=== PATIENT | female | born 1965 | race Two or more races ===

== ENCOUNTER 2023-01-08 23:36 | Inpatient (IN) | payer OTHER, MEDICAID ==
[~2023-01-08] VITALS: Ht 172.7 cm; Wt 81.7 kg
[2023-01-09 00:09] VITALS: PULSE 86; RESP 18; O2SAT 97
[2023-01-09 00:33] LABS: Basophils # (auto) 0 10 ^3/uL (0-0.2); Basophils % (auto) 0.6 % (0.0-2.0); Eosinophils # (auto) 0.2 10 ^3/uL (0-0.8); Lymphocytes # (auto) 0.6 10 ^3/uL (0.4-5.4); Mean Corpuscular Volume 82.9 fL (80.0-100.0)
[2023-01-09 00:35] LABS: Hematocrit 30.6 % (36.0-46.0); Lymphocytes % (auto) 11.6 % (10.0-50.0); Mean Corpuscular Hgb Conc. 32.5 g/dL (32.0-36.0); Monocytes # (auto) 0.4 10 ^3/uL (0-1.3); Monocytes % (auto) 7.2 % (0.0-12.0); Neutrophils # (auto) 3.8 10 ^3/uL (1.6-8.6); Neutrophils % (auto) 76.6 % (37.0-80.0); Red Blood Cells 3.69 10^6/uL (4.0-5.20); Red Cell Distribution Width 15.6 % (11.8-14.3)
[2023-01-09 00:50] LABS: Alanine Aminotransferase 33 U/L (7-40); Albumin 3.6 g/dL (3.2-4.8); Alkaline Phosphatase 118 U/L (46-116); Anion Gap 9 (5-15); Aspartate Aminotransferase 50 U/L (13-40); Bilirubin, Total 2.7 mg/dL (0.2-1.0); Blood Urea Nitrogen 15 mg/dL (9-23); Calcium 8.6 mg/dL (8.7-10.4); Carbon Dioxide 24 mmol/L (20-30); Chloride 107 mmol/L (98-107); Glucose 130 mg/dL (74-106); Magnesium 1.3 mg/dL (1.6-2.6); Potassium 3.7 mmol/L (3.5-5.1); Sodium 140 mmol/L (136-145); Total Protein 7.8 g/dL (5.7-8.2)
[2023-01-09 00:51] LABS: INR 1.24 (0.9-1.15); Partial Thromboplastin Time 30.8 SEC (24.5-34.5); Prothrombin Time 12.8 sec (9.3-11.8)
[2023-01-09 01:12] LABS: Platelet Estimate Decreased
[2023-01-09] MEDS ORDERED: SODIUM CHLORIDE 0.9% 1,000 ML IV ONE ×2 (03:30→06:45)
[2023-01-09] MEDS ORDERED: LACTULOSE 20Gm/30ML SOLN PO ONE (04:30)
[2023-01-09 05:59] LABS: Urine Bacteria FEW /hpf (None Seen); Urine Blood Negative /uL (Negative); Urine Clarity Clear (Clear); Urine Color Yellow (Yellow); Urine Protein, UAD Negative (Negative); Urine Specific Gravity 1.012 (1.001-1.035); Urine Urobilinogen Normal (Negative); Urine WBC 3 /hpf (0 - 5); Urine pH 7.5 (5.0-8.0)
[2023-01-09] MEDS ORDERED: HYDROcodone-ACET 5/325MG TAB PO ONE (06:00)
[2023-01-09] MEDS ORDERED: DEXTROSE (50%) 50ML SYRG IV PRN (06:00)
[2023-01-09] MEDS ORDERED: ONDANSETRON HCL 4 MG/2 ML VIAL IV PRN (06:00)
[2023-01-09] MEDS ORDERED: hydrALAZINE HCL 10 MG TAB PO PRN (06:00)
[2023-01-09 06:16] LABS: Amphetamine Screen, Urine Neg (NEGATIVE); Barbiturate Scree,Urine Neg (NEGATIVE); Benzodiazephine Screen, Urine Neg (NEGATIVE); Cannabinoid Screen, Urine Neg (NEGATIVE); Cocaine Screen, Urine Neg (NEGATIVE); Opiate Scree,Urine Pos (NEGATIVE); Phencyclidine Screen, Urine Neg (NEGATIVE)
[2023-01-09 08:00] VITALS: PULSE 96; RESP 24; O2SAT 99
[2023-01-09 08:26] LABS: Alanine Aminotransferase 32 U/L (7-40); Alkaline Phosphatase 97 U/L (46-116); Anion Gap 9 (5-15); Aspartate Aminotransferase 48 U/L (13-40); BUN/Creatinine Ratio 14.1 (10.0-20.0); Blood Urea Nitrogen 13 mg/dL (9-23); Calcium 8.2 mg/dL (8.5-10.1); Carbon Dioxide 23 mmol/L (20-30); Chloride 110 mmol/L (98-107); Glucose 142 mg/dL (74-106); Potassium 3.5 mmol/L (3.5-5.1); Sodium 142 mmol/L (136-145)
[2023-01-09 08:27] LABS: Bilirubin, Total 2.5 mg/dL (0.2-1.0); Total Protein 7.1 g/dL (5.7-8.2)
[2023-01-09 08:28] LABS: Albumin 3.3 g/dL (3.2-4.8)
[2023-01-09] MEDS: LACTULOSE 20Gm/30ML SOLN PO SCH ×4 (08:30→23:14)
[2023-01-09] MEDS: MAGNESIUM SULFATE 1GM/100ML 100 ML IV SCH ×2 (08:30→12:26)
[2023-01-09] MEDS: InsuLIN REG 1unit/0.01ml Soln (100units/ml) SC SCH ×4 (08:30→23:14)
[2023-01-09] MEDS: ACCU-CHEK COMFORT CURVE STRIP VI SCH ×4 (08:31→22:00)
[2023-01-09] MEDS ORDERED: MORPHINE SULFATE 4 MG/ML SYR/VIAL IV ONE (23:30)
[2023-01-09] MEDS ORDERED: ONDANSETRON HCL 4 MG/2 ML VIAL IV ONE (23:30)
[2023-01-10 02:06] VITALS: TEMP 98.2
[2023-01-10] MEDS: LACTULOSE 20Gm/30ML SOLN PO SCH ×2 (06:27→11:56)
[2023-01-10] MEDS: ACCU-CHEK COMFORT CURVE STRIP VI SCH ×3 (06:39→17:26)
[2023-01-10] MEDS: InsuLIN REG 1unit/0.01ml Soln (100units/ml) SC SCH ×3 (06:40→17:27)
[2023-01-10 09:12] LABS: Hepatitis B Surface Antigen Negative (Negative)
[2023-01-10 09:32] LABS: Hepatitis A Ab IgM Negative
[2023-01-10 09:33] LABS: Hepatitis B Core IgM Negative; Hepatitis C Antibody Negative (Negative)
[2023-01-10] MEDS ORDERED: MAGNESIUM OXIDE 400 MG TAB PO ONE (10:45)
[2023-01-10 11:55] LABS: Chloride 109 mmol/L (98-107); Potassium 3.1 mmol/L (3.5-5.1); Sodium 140 mmol/L (136-145)
[2023-01-10 11:56] LABS: Anion Gap 8 (5-15); Carbon Dioxide 23 mmol/L (20-30)
[2023-01-10 12:01] LABS: BUN/Creatinine Ratio 12.2 (10.0-20.0); Blood Urea Nitrogen 11 mg/dL (9-23); Glucose 204 mg/dL (74-106)
[2023-01-10 12:02] LABS: Magnesium 1.4 mg/dL (1.6-2.6)
[2023-01-10] MEDS ORDERED: POTASSIUM EFFERVESENT TAB 25 MEQ PO ONE (16:15)
[2023-01-10] MEDS ORDERED: MAGNESIUM SULFATE 1GM/100ML 100 ML IV SCH (17:00)
[2023-01-10] MEDS ORDERED: LACT10SO3 PO (17:01)
[2023-01-10 17:51] VITALS: BP 145/62; PULSE 87; RESP 16; O2SAT 97
== END 2023-01-10 17:46 | disposition home or self-care (01) | DRG 441 ==
LOC: ER 23:36 → EDBD 23:36 → TELE 01-09 06:20 → UNDODEPER 01-10 17:06
PROVIDERS: ADMIT Nurse Practitioner Family; ATTEND Nurse Practitioner Family
DX: K76.82 Hepatic encephalopathy (principal); G92.8 Other toxic encephalopathy; E11.9 Type 2 diabetes mellitus without complications; E83.42 Hypomagnesemia; G89.4 Chronic pain syndrome; I10 Essential (primary) hypertension; K74.60 Unspecified cirrhosis of liver; Z96.643 Presence of artificial hip joint, bilateral; E78.5 Hyperlipidemia, unspecified; M06.9 Rheumatoid arthritis, unspecified; Z79.84 Long term (current) use of oral hypoglycemic drugs; D69.6 Thrombocytopenia, unspecified
CPT/HCPCS: 36415; 70450; 71250; 74176; 76705; 80048; 80053; 80074; 80307; 81001; 82105; 82140; 82962; 83735; 83880; 84484; 85025; 85610; 85730; 93005; G0378; J1815; J2405

== ENCOUNTER 2024-06-04 18:28 | Inpatient (IN) | payer OTHER, MEDICARE ==
[~2024-06-04] VITALS: Ht 152.4 cm; Wt 96.5 kg
[~2024-06-04 18:28] MED LIST: LACT10SO3 PO
[2024-06-04 19:19] LABS: Eosinophils # (auto) 0.1 10 ^3/uL (0-0.8); Mean Corpuscular Hemoglobin 32.6 pg (28.0-32.0); Monocytes # (auto) 0.5 10 ^3/uL (0-1.3); Monocytes % (auto) 5.2 % (0.0-12.0); Platelet Count (auto) 58 10^3/uL (140-450); Red Blood Cells 3.68 10^6/uL (4.0-5.20)
[2024-06-04 19:20] LABS: Basophils # (auto) 0.1 10 ^3/uL (0-0.2); Basophils % (auto) 0.6 % (0.0-2.0); Eosinophils % (auto) 0.6 % (0.0-7.0); Hematocrit 34.9 % (36.0-46.0); Lymphocytes # (auto) 0.6 10 ^3/uL (0.4-5.4); Lymphocytes % (auto) 6.3 % (10.0-50.0); Mean Corpuscular Hgb Conc. 34.4 g/dL (32.0-36.0); Mean Corpuscular Volume 94.9 fL (80.0-100.0); Neutrophils # (auto) 8.6 10 ^3/uL (1.6-8.6); Neutrophils % (auto) 87.3 % (37.0-80.0); Nucleated Red Blood Cells % 0.1 %; Red Cell Distribution Width 14.4 % (11.8-14.3); White Blood Cell 9.9 10^3/uL (4.4-10.8)
--- NOTE | 2024-06-04 19:24 | ED.PDOC ---
History of Present Illness HPI Comments 59 y/o morbidly obese F, with a history of DM and HTN, presents with relative for c/o dizziness, lightheadedness,, headache, productive cough, nausea, vomiting, bilateral leg weakness, and unclear [id number], today. Patient endorses on onset of symptoms, last night. She comments concerns regarding her liver and suspecting her "liver enzymes" being "elevated," with endorsement of similar findings during previous PCP appointment, last week. Patient also reports on isolated episode of LUQ abdominal pain for 2x days that has since subsided on its own prior to ED visit. She denies having any hematemesis, diarrhea, constipation, urinary symptoms, fever, chills, or other associated sy mptoms at this time. Chief Complaint: General Weakness Time Seen by MD: 18:50 Primary Care Provider: BRENDA Robbins Notes: Nurses Notes, Medications, Allergies Allergies: Coded Allergies: NO KNOWN ALLERGIES (Unverified , 01/08/23) Home Meds Active Scripts Lactulose (Lactulose) 10 Gm/15 Ml [place], 30 ML PO Q6HR, #1200 ML Prov:ED ALBERTO MD 01/10/23 Information Source: Patient Mode of Arrival: Wheelchair Severity: Moderate Past Medical History PAST MEDICAL HISTORY: DM ([id number]), HTN Past Medical History (Other): previous history of chronic osteomyelitis of the left hip currently on [place], morbildy obese Surgical History (Other): bilateral hip surgery [employer] History: Pt Confused Family History Family History: Pt Confused Social History Smoker: Pt Confused Alcohol: Pt Confused Drugs: Pt Confused Lives In: Home All Other Systems: Reviewed and Negative (Comprehensive systems review obtained and negative except for what is stated in the HPI.) Physical Exam General Appearance: Mild Distress, Obese HEENT: Normal ENT Inspection, Pharynx Normal, TMs Normal Neck: Full Range of Motion, Non-Tender, Normal, Normal Inspection Respiratory: Chest Non-Tender, Lungs Clear, No Accessory Muscle Use, No Respiratory Distress, Normal Breath Sounds Cardiovascular: No Edema, No JVD, No Murmur, No Gallop, Normal Peripheral P ulses, Regular Rate/Rhythm Breast Exam: Deferred Gastrointestinal: No Organomegaly, Non Tender, No Pulsatile Mass, Normal Bowel Sounds, Soft, Other (obese abdomen ) Genitalia: Deferred Pelvic: Deferred Rectal: Deferred Extremities: No calf tenderness, Normal capillary refill, Normal inspection, Normal range of motion, Non-tender, No pedal edema Musculoskeletal : Apperance: Normal Neurologic: Alert, component prep operator II-XII nml as Tested, No Motor Deficits, Normal Affect, Normal Mood, No Sensory Deficits Cerebellar Function: Normal Reflexes: Normal Skin: Dry, Normal Color, Warm Lymphatic: No Adenopathy Was a procedure done? Was a procedure done?: No EKG EKG : Pulse Rate (adult): 104 [place]: Normal Cardiac Rhythm: ST Block: None Hypertrophy: None ST: Normal Differential Dx Considerations may include: viral syndrome, URI, PNA, sepsis, gastritis, gastroenteritis, UTI, among others X-Ray, Labs, Meds, VS Vital Signs Date Time Temp Pulse Resp B/P (MAP) Pulse Ox O2 Delivery O2 Flow Rate FiO2 06/04/24 19:23 104 06/04/24 19:01 104 06/04/24 18:46 98.9 113 20 123/65 (84) 98 98.9 Lab Test 06/04/24 20:00 06/04/24 19:07 06/04/24 18:57 06/04/24 18:56 Range/Units Lactic Acid Level 2.2 *H 0.4-2.0 mmol/L White Blood Count 9.9 4.4-10.8 10^3/uL Red Blood Count 3.68 L 4.0-5.20 10^6/uL Hemoglobin 12.0 L 12.2-16.2 g/dL Hematocrit 34.9 L 36.0-46.0 % Mean Corpuscular Volume 94.9 80.0-100.0 fL Mean Corpuscular Hemoglobin 32.6 H 28.0-32.0 pg Mean Corpuscular Hemoglobin Concent 34.4 32.0-36.0 g/dL Red Cell Distribution Width 14.4 H 11.8-14.3 % Platelet Count 58 L 140-450 10^3/uL Mean Platelet Volume 8.3 6.9-10.8 fL Neutrophils (%) (Auto) 87.3 H 37.0-80.0 % Lymphocytes (%) (Auto) 6.3 L 10.0-50.0 % Monocytes (%) (Auto) 5.2 0.0-12.0 % Eosinophils (%) (Auto) 0.6 0.0-7.0 % Basophils (%) (Auto) 0.6 0.0-2.0 % Neutrophils # (Auto) 8.6 1.6-8.6 10 ^3/uL Lymphocytes # (Auto) 0.6 0.4-5.4 10 ^3/uL Monocytes # (Auto) 0.5 0-1.3 10 ^3/uL Eosinophils # (Auto) 0.1 0-0.8 10 ^3/uL Basophils # (Auto) 0.1 0-0.2 10 ^3/uL Nucleated Red Blood Cells 0.1 % Platelet Estimate Pending Sodium Level 138 136-145 mmol/L Potassium Level 4.0 3.5-5.1 mmol/L Chloride Level 107 98-107 mmol/L Carbon Dioxide Level 24 20-31 mmol/L Anion Gap 7 5-15 Blood Urea Nitrogen 9 9-23 mg/dL Creatinine 0.74 0.550-1.02 mg/dL Glomerular Filtration Rate Calc 93 >90 mL/min BUN/Creatinine Ratio 12.2 10.0-20.0 Serum Glucose 135 H 74-106 mg/dL Calcium Level 8.5 L 8.7-10.4 mg/dL Magnesium Level 1.6 1.6-2.6 mg/dL Total Bilirubin 6.2 H 0.2-1.0 mg/dL Aspartate Amino Transferase (AST) 54 H 13-40 U/L Alanine Aminotransferase (ALT) 23 7-40 U/L Alkaline Phosphatase 142 H 46-116 U/L Ammonia 63 H 11-32 umol/L Troponin I High Sensitivity < 3 L </=34 ng/L Total Protein 7.6 5.7-8.2 g/dL Albumin 2.8 L 3.2-4.8 g/dL Urine Color Light-orange Yellow Urine Clarity Turbid H Clear Urine pH 7.5 5.0-9.0 Urine Specific [place] 1.021 1.001-1.035 Urine Protein Trace H Negative Urine Ketones Trace Negative Urine Blood Negative Negative /uL Urine Nitrite Negative Negative Urine Bilirubin Negative Negative Urine Urobilinogen 4 H Negative mg/dL Urine Leukocyte Esterase Negative Negative /uL Urine RBC 1 0 - 4 /hpf Urine Microscopic WBC 3 0-5 /HPF Urine Squamous Epithelial Cells Few <5 /hpf Urine Bacteria Few H None Seen /hpf Urine Mucus Few None Seen Urine Glucose Normal Normal mg/dL POC Glucose 126 H 70-106 mg/dl [facility] [address] [facility] [address] Ph: [phone] DIAGNOSTIC IMAGING Diagnostic Imaging Report : [id number] Signed PATIENT: GOLD MORRISON ACCT: [id number] UNIT: [id number] : 1965 LOC: ER ROOM / BED: / AGE / SEX: 59 / F ADM STATUS: REG ER SERVICE 35 ORDERING PHYSICIAN: ASIM DEL VALLE MD PROCEDURE(s): HWOCT - HEAD WITHOUT CONTRAST REASON: vertigo ORDER NUMBER(s): [id number], ACCESSION NUMBER(s): [id number] EXAM: CT HEAD WITHOUT CONTRAST INDICATION: vertigo TECHNIQUE: CT of the head without intravenous contrast. Radiation Dose Information: CT Dose: CTDI volume is 53.09 mGy. Dose-length product is 863.9 mGy*cm The dose indicators for CT are the volume Computed Tomography (CT) Dose Index (CTDIvol) and the Dose Length Product (DLP), and are measured in units of mGy and mGy-cm, respectively. These indicators are not patient dose, but values generated from the CT scanner acquisition factors. The report includes radiation exposure data for exposures received during this examination. COMPARISON: CT HEAD WITHOUT CONTRAST on DOS: 01/09/23 FINDINGS: There is no evidence of acute intracranial hemorrhage, extra-axial collection, mass effect, midline shift, herniation or hydrocephalus. The ventricles, sulci and cisterns are age appropriate. The strauss-white differentiation is intact. Patchy periventricular and subcortical white matter hypoattenuation is nonspecific but may be related to small vessel ischemic disease. The visualized paranasal sinuses and mastoid air cells are clear. The surrounding soft tissues and osseous structures are unremarkable. IMPRESSION: 1. No acute intracranial hemorrhage 2. No CT findings of territorial ischemia. 3. No paranasal sinus disease or mastoid disease. ATED BY: APOLONIA RODAS Jr., DO DICTATED DATE/TIME: 06/04/241951 SIGNED BY: APOLONIA RODAS Jr., SIGNED DATE/TIME: 06/04/241951 CC: Time of 1ST Reevaluation: 19:20 Reevaluation 1ST: Unchanged Time of 2ND Reevaluation: 20:16 Reevaluation 2ND: Unchanged Patient Education/Counseling: Diagnosis, Treatment Family Education/Counseling: Diagnosis, Treatment Additional Information Previous medical encounters reviewed: January 09, 2023 encounter for AMS The following tests were ordered, and results were reviewed by me: CT head w/o contrast, EKG, lactic acid w/reflex, ammonia, magnesium, CMP, CBC, troponin, blood culture Additional Information was gathered from interviewing the following independent historians: n/a I reviewed and agreed with the following test results read by other providers: CT head w/o contrast I discussed treatment and results with medical personnel and: Patient, relative Sepsis focused exam: focus exam completed (In the initial resuscitation at least 30 mL/kg of IV crystalloid fluid was NOT given within the first 3 hr due to concerns of fluid overload), time: (1999) Sepsis Sepsis Reasesment Focused Exam Sepsis focused exam: focus exam completed (In the initial resuscitation at least 30 mL/kg of IV crystalloid fluid was NOT given within the first 3 hr due to concerns of fluid overload), time: (1999) Departure 1 Departure Time of Disposition: 20:17 Impression: Primary Impression: Acute hepatic encephalopathy Disposition: ADMITTED INPATIENT Admit to: Med Surg Condition: Guarded Discharged With: Self, Relative Comments Altered Mental Status with Hepatic Encephalopathy Chief Complaint: Generalized weakness with confusion History of Present Illness: 59-year-old female with a history of liver cirrhosis presents with a 3-day history of generalized weakness, nausea, occasional vomiting, poor c oncentration, and intermittent confusion. These symptoms are concerning for hepatic encephalopathy in the context of her known liver disease. The patient's presentation suggests a possible precipitating factor leading to her current deterioration. Review of Systems: Constitutional: Generalized weakness Neurological: Poor concentration, confusion Gastrointestinal: Nausea, vomiting Medications: No current medications documented Allergies: No known allergies documented Past Medical History: Liver cirrhosis Diabetes mellitus Hypertension Fatty liver disease Morbid obesity Lab Results: CBC: - WBC: 10.0 - Hemoglobin: 12 - Hematocrit: 35 - Platelets: 58 Liver Function Tests: - Total Bilirubin: 6.2 - AST: 54 - Alkaline Phosphatase: 142 Other: - Ammonia: 63 (Elevated) - Lactic acid: 2.2 (Borderline elevated) Imaging and Other Relevant Results: No imaging studies documented Medical Decision Making: Summary Statement: 59-year-old female with known cirrhosis presenting with altered mental status and laboratory findings consistent with hepatic encephalopathy, complicated by dehydration. Problem List: 1. Hepatic encephalopathy 2. Dehydration 3. Elevated lactic acid 4. Thrombocytopenia 5. Liver cirrhosis Differential Diagnosis: 1. Hepatic encephalopathy 2. Metabolic encephalopathy 3. Sepsis 4. Drug-induced mental status changes 5. Intracranial process ED Course: Patient received IV fluid resuscitation and was started on IV Zosyn for elevated lactic acid. Lactulose ordered for elevated ammonia level. Decision made to admit patient for management of hepatic encephalopathy and dehydration. Assessment and Plan: 1. Hepatic Encephalopathy: - Elevated ammonia level of 63 - Started on lactulose - Will require inpatient management 2. Dehydration: - Receiving IV fluid resuscitation - Monitor fluid status and electrolytes 3. Elevated Lactic Acid: - Started on empiric IV Zosyn - Monitor response to treatment 4. Disposition: - Admit to medicine service - Continue current interventions - Close monitoring of mental status Billing Information: ICD-10: K72.90 - Hepatic failure, unspecified without coma ICD-10: E86.0 - Dehydration ICD-10: R41.0 - Disorientation, unspecified ICD-10: K74.60 - Unspecified cirrhosis of liver Critical Care Note Critical Care Time?: Yes (35 min-critical care time only) Critical care comment: Total critical care time: Approximately 36 minutes Due to a high probability of clinically significant, life threatening deterioration, the patient required my highest level of preparedness to intervene emergently and I personally spent this critical care time directly and personally managing the patient. This critical care time included obtaining a history; examining the patient; pulse oximetry; ordering and review of studies; arranging urgent treatment with development of a management plan; evaluation of patient's response to treatment; frequent reassessment; and, discussions with other providers. This critical care time was performed to assess and manage the high probability of imminent, life-threatening deterioration that could result in multi-organ failure. It was exclusive of separately billable procedures and treating other patients. Stability Stability form required: No Heart Score Heart Score: Heart Score Response (Comments) Value History N/A 0 EKG N/A 0 Age N/A 0 Risk Factors N/A 0 Troponin N/A 0 Total 0 I personally scribed for ASIM DEL VALLE MD ([email or web address]) on 06/04/24 at 19:23. Electronically submitted by Bj Quinn ([email or web address]). I personally scribed for ASIM DEL VALLE MD ([email or web address]) on 06/04/24 at 20:25. Electronically submitted by Bj Quinn [email or web address]). ASIM DEL VALLE MD Jun 04, 2024 19:23
[2024-06-04 19:33] LABS: Urine Bacteria FEW /hpf (None Seen); Urine Blood Negative /uL (Negative); Urine Clarity Turbid (Clear); Urine Color Light-Orange (Yellow); Urine Mucus FEW (None Seen); Urine Protein, UAD TRACE (Negative); Urine Specific Gravity 1.021 (1.001-1.035); Urine Squamous Epithelial Cell FEW /hpf (<5); Urine Urobilinogen 4 mg/dL (Negative); Urine WBC 3 /HPF (0-5); Urine pH 7.5 (5.0-9.0)
[2024-06-04 19:39] LABS: Alanine Aminotransferase 23 U/L (7-40); BUN/Creatinine Ratio 12.2 (10.0-20.0); Chloride 107 mmol/L (98-107); Magnesium 1.6 mg/dL (1.6-2.6); Sodium 138 mmol/L (136-145); Total Protein 7.6 g/dL (5.7-8.2)
[2024-06-04 19:42] LABS: Albumin 2.8 g/dL (3.2-4.8); Alkaline Phosphatase 142 U/L (46-116); Aspartate Aminotransferase 54 U/L (13-40); Bilirubin, Total 6.2 mg/dL (0.2-1.0); Blood Urea Nitrogen 9 mg/dL (9-23); Calcium 8.5 mg/dL (8.7-10.4); Glucose 135 mg/dL (74-106)
[2024-06-04 19:47] LABS: Anion Gap 7 (5-15); Carbon Dioxide 24 mmol/L (20-31)
--- NOTE | 2024-06-04 19:54 | DVH ---
EXAM: CT HEAD WITHOUT CONTRAST INDICATION: vertigo TECHNIQUE: CT of the head without intravenous contrast. Radiation Dose Information: CT Dose: CTDI volume is 53.09 mGy. Dose-length product is 863.9 mGy*cm The dose indicators for CT are the volume Computed Tomography (CT) Dose Index (CTDIvol) and the Dose Length Product (DLP), and are measured in units of mGy and mGy-cm, respectively. These indicators are not patient dose, but values generated from the CT scanner acquisition factors. The report includes radiation exposure data for exposures received during this examination. COMPARISON: CT HEAD WITHOUT CONTRAST on DOS: 01/09/23 FINDINGS: There is no evidence of acute intracranial hemorrhage, extra-axial collection, mass effect, midline s hift, herniation or hydrocephalus. The ventricles, sulci and cisterns are age appropriate. The strauss-white differentiation is intact. Patchy periventricular and subcortical white matter hypoattenuation is nonspecific but may be related to small vessel ischemic disease. The visualized paranasal sinuses and mastoid air cells are clear. The surrounding soft tissues and osseous structures are unremarkable. IMPRESSION: 1. No acute intracranial hemorrhage 2. No CT findings of territorial ischemia. 3. No paranasal sinus disease or mastoid disease.
[2024-06-04 20:43] LABS: Lactic Acid w/Reflex 2.2 mmol/L (0.4-2.0)
[2024-06-04 20:54] LABS: Platelet Estimate Decreased
[2024-06-04] MEDS: SODIUM CHLORIDE 0.9% 1,000 ML IV ONE (22:53)
[2024-06-04] MEDS: PIPERACILLIN-TAZOB 3.375GM 100 ML IV ONE (22:53)
[2024-06-04] MEDS: MECLIZINE HCL 25 MG TAB PO ONE (22:53)
[2024-06-04 23:01] VITALS: PULSE 110; RESP 18; O2SAT 98
[2024-06-05] VITALS (7 sets, daily range): BP systolic 127–137; BP diastolic 74–76; PULSE 86–105; RESP 18–20; TEMP 98; O2SAT 95–100
[2024-06-05] MEDS: IOHEXOL 300 MG/ML 100ML BOTTLE IJ ONE (00:55)
[2024-06-05] MEDS: ONDANSETRON HCL 4 MG/2 ML VIAL IV ONE (01:05)
[2024-06-05] MEDS: MORPHINE SULFATE 4 MG/ML SYR/VIAL IV ONE (01:06)
--- NOTE | 2024-06-05 01:18 | DVH ---
Exam: CT CT AB PELVIS W WO CON-IV ONLY History: abd pain, cirrhosis Comparison Study: None available at time of dictation. Technique: Multidetector spiral CT of the abdomen and pelvis was performed from lung bases to pubic s ymphysis. Initial imaging was done without IV contrast, followed by post contrast images of the abdom en and pelvis. Intravenous contrast was administered during this examination. portal venous/arterial/ multiphase imaging was obtained. Axial, coronal and sagittal multiplanar reformats were performed by the technologist on a separate workstation. Radiation Dose : CT Dose: CTDI volume is 47.44 mGy. Dose-length product is 2760.61 mGy*cm Findings: Lung Bases: Small right pleural effusion. Normal heart size. No pericardial effusion. Liver: The liver exhibits a diffusely cirrhotic morphology. No focal lesions. Otherwise, normal hepa tic vascular enhancement. Gallbladder and Biliary Tree: Unremarkable Spleen: Enlarged, measuring 17.0 cm in craniocaudal dimension. Pancreas: The pancreas is normal in appearance without focal lesions or abnormal enhancement. Adrenal Glands: Unremarkable Kidneys: Kidneys demonstrate normal symmetric enhancement without focal lesions, calculi or hydroneph rosis. Bladder: Unremarkable Bowel: The stomach is grossly normal in appearance. Colonic diverticular disease of the descending an d sigmoid colon without evidence of acute diverticulitis. Small bowel and colon are normal in caliber and distribution. The appendix is not visualized; however, no secondary findings of acute appendicit is identified. Ascites: Small volume abdominal and pelvic ascites. Lymphadenopathy: No mesenteric, retroperitoneal or periportal lymphadenopathy. Abdominal Wall and Mesentery: Unremarkable. Vasculature: The visualized abdominal aorta is normal in size and caliber. Atherosclerotic vascular c alcifications. Prominent portal venous and splenic collateral vessels consistent with cirrhosis and p ortal venous hypertension. Abdominal and pelvic vessels demonstrate normal enhancement. Pelvic Organs: Unremarkable Musculoskeletal: No aggressive focal bony lesions, acute fractures or dislocation. Hardware present s tatus post bilateral total hip arthroplasty. IMPRESSION: 1. Hepatic cirrhosis, splenomegaly and sequelae of portal venous hypertension. 2. Small volume abdominopelvic ascites. 3. Small pleural effusion. 4. Diverticulosis coli. Radiation optimization: All CT scans at this facility use at least one of these dose optimization joyce hniques: automated exposure control mA and/or kV adjustment per patient size (includes targeted exam s where dose is matched to clinical indication) or iterative reconstruction.
[2024-06-05] MEDS ORDERED: ACETAMINOPHEN 325 MG TAB PO PRN (07:15)
[2024-06-05] MEDS ORDERED: traMADol HCL 50 MG TAB PO PRN (07:15)
[2024-06-05] MEDS ORDERED: DOCUSATE SOD 100 MG CAP PO PRN (07:15)
[2024-06-05] MEDS ORDERED: NITROGLYCERIN 0.4 MG SL TAB SL PRN (07:15)
[2024-06-05] MEDS ORDERED: ONDANSETRON HCL 4 MG/2 ML VIAL IV PRN (07:15)
[2024-06-05] MEDS ORDERED: MORPHINE SULFATE INJ 2 MG/ml SYRG IV PRN (07:15)
[2024-06-05] MEDS ORDERED: DEXTROSE (50%) 50ML SYRG IV PRN (07:30)
[2024-06-05] MEDS: LACTULOSE 20Gm/30ML SOLN PO SCH ×2 (07:42→14:00)
--- NOTE | 2024-06-05 10:09 | ECG ---
[facility] Test Date: 2024-06-04 Test Time: 19:01:50 Pat Name: GOLD MORRISON Department: ER Room: [address] [place] [address] Gender: F Bundle Wrapper: SHERLEY : 1965 Requested By: ASIM DEL VALLE Order Number: [id number] Reading MD: Reginaldo Landis Measurements Intervals [place] Rate: 104 P: 35 IN: 150 QRS: 30 QRSD: 82 T: 21 QT: 352 QTc: 463 Interpretive Statements Fast sinus arrhythmia Low voltage, precordial leads Probable anteroseptal infarct, old Electronically Signed On 06-05-2024 18:50:20 PDT by Reginaldo Landis Please click the below link to view image of tracing.
[2024-06-05] MEDS: MORPHINE SULFATE INJ 2 MG/ml SYRG IV PRN (10:32)
[2024-06-05] MEDS: InsuLIN REG 1unit/0.01ml Soln (100units/ml) SC SCH (11:30)
[2024-06-05] MEDS: ACCU-CHEK COMFORT CURVE STRIP VI SCH (11:39)
--- NOTE | 2024-06-05 12:14 | DVHHP2 ---
History of Present Illness History of Present Illness 59 y/o morbidly obese F, with a history of DM and HTN, presents with relative for c/o dizziness, lightheadedness,, headache, productive cough, nausea, vomiting, bilateral leg weakness, and unclear [id number], today. Patient endorses on onset of symptoms, last night. She comments concerns regarding her liver and suspecting her "liver enzymes" being "elevated," with endorsement of similar findings during previous PCP appointment, last week. Patient also reports on isolated episode of LUQ abdominal pain for 2x days that has since subsided on its own prior to ED visit. She denies having any hematemesis, diarrhea, constipation, urinary symptoms, fever, chills, or other associated symptoms at this time. In the ER she was noted to have mildly elevated ammonia level around 63. Given her abdominal pain symptoms with a history of underlying liver cirrhosis and elevated ammonia levels she was being brought into the hospital for further evaluation and management. Past Medical History Morbid obesity, osteoarthritis of the hips, liver cirrhosis unclear etiology Past Surgical History Hip surgery Smoke: No ALCOHOL: rare Drugs: None Lives: with Family Review of Systems Review of Systems Denies any fevers. No headache dizziness or lightheadedness. No recent travel. Patient does have loose stools due to taking lactulose. No coughing up blood or bleeding per rectum. Other review of systems reviewed normal. Allergies: Coded Allergies: NO KNOWN ALLERGIES (Unverified , 01/08/23) Medications Current Medications Medications Dose Ordered Sig/Jeri Route Start Time Stop Time Status Last Admin Dose Admin Docusate Sodium 100 mg BIDPRN PRN PO 06/05/24 07:15 Acetaminophen 650 mg Q6HP PRN PO 06/05/24 07:15 Ondansetron HCl 4 mg Q4HP PRN IV 06/05/24 07:15 Morphine Sulfate 2 mg Q4HPRN PRN IV 06/05/24 07:15 06/05/24 10:32 2 MG Nitroglycerin 0.4 mg Q5MINP PRN SL 06/05/24 07:15 Morphine Sulfate 2 mg Q30M PRN IV 06/05/24 07:15 Lactulose 30 ml Q6HR PO 06/05/24 07:15 06/05/24 12:07 30 ML Tramadol HCl 50 mg Q6HPRN PRN PO 06/05/24 07:15 Diagnostic Test (Pha) 1 strip ACHS 06/05/24 11:30 06/05/24 11:39 1 STRIP Insulin Human Regular ACHS SC 06/05/24 11:30 Dextrose 50 ml UD PRN IV 06/05/24 07:30 Pantoprazole Sodium 40 mg BID@0600,1700 PO 06/05/24 17:00 Exam Vital Signs Vital Signs Date Time Temp Pulse Resp B/P (MAP) Pulse Ox O2 Delivery O2 Flow Rate FiO2 06/05/24 12:00 94 19 117/61 (79) 96 06/05/24 07:34 Nasal Cannula* 2 28 06/05/24 07:33 98.0 98.0 Exam Obese female comfortable lying in bed. Complains of mild epigastric discomfort. HEENT neck supple no JVD. Pupils equal round react to light. Oropharynx clear. Heart regular rate and rhythm. S1 plus S2 without any murmurs or gallops. Chest tube will expansion. Lungs fair air movement. No rales or wheezes. Abdomen is obese. Soft. Mild tenderness to deep palpation in the epigastric region. No rebound or guarding. Unable to palpate organomegaly. Extremities no edema. Positive distal pedal pulses. Nonpitting edema around the ankles. Labs/Xrays Labs Test 06/05/24 11:37 06/04/24 22:01 06/04/24 19:07 06/04/24 18:57 Range/Units POC Glucose 126 H 70-106 mg/dl Lactic Acid Level 2.0 0.4-2.0 mmol/L White Blood Count 9.9 4.4-10.8 10^3/uL Red Blood Count 3.68 L 4.0-5.20 10^6/uL Hemoglobin 12.0 L 12.2-16.2 g/dL Hematocrit 34.9 L 36.0-46.0 % Mean Corpuscular Volume 94.9 80.0-100.0 fL Mean Corpuscular Hemoglobin 32.6 H 28.0-32.0 pg Mean Corpuscular Hemoglobin Concent 34.4 32.0-36.0 g/dL Red Cell Distribution Width 14.4 H 11.8-14.3 % Platelet Count 58 L 140-450 10^3/uL Mean Platelet Volume 8.3 6.9-10.8 fL Neutrophils (%) (Auto) 87.3 H 37.0-80.0 % Lymphocytes (%) (Auto) 6.3 L 10.0-50.0 % Monocytes (%) (Auto) 5.2 0.0-12.0 % Eosinophils (%) (Auto) 0.6 0.0-7.0 % Basophils (%) (Auto) 0.6 0.0-2.0 % Neutrophils # (Auto) 8.6 1.6-8.6 10 ^3/uL Lymphocytes # (Auto) 0.6 0.4-5.4 10 ^3/uL Monocytes # (Auto) 0.5 0-1.3 10 ^3/uL Eosinophils # (Auto) 0.1 0-0.8 10 ^3/uL Basophils # (Auto) 0.1 0-0.2 10 ^3/uL Nucleated Red Blood Cells 0.1 % Platelet Estimate Decreased Sodium Level 138 136-145 mmol/L Potassium Level 4.0 3.5-5.1 mmol/L Chloride Level 107 98-107 mmol/L Carbon Dioxide Level 24 20-31 mmol/L Anion Gap 7 5-15 Blood Urea Nitrogen 9 9-23 mg/dL Creatinine 0.74 0.550-1.02 mg/dL Glomerular Filtration Rate Calc 93 >90 mL/min BUN/Creatinine Ratio 12.2 10.0-20.0 Serum Glucose 135 H 74-106 mg/dL Calcium Level 8.5 L 8.7-10.4 mg/dL Magnesium Level 1.6 1.6-2.6 mg/dL Total Bilirubin 6.2 H 0.2-1.0 mg/dL Aspartate Amino Transferase (AST) 54 H 13-40 U/L Alanine Aminotransferase (ALT) 23 7-40 U/L Alkaline Phosphatase 142 H 46-116 U/L Ammonia 63 H 11-32 umol/L Troponin I High Sensitivity < 3 L </=34 ng/L Total Protein 7.6 5.7-8.2 g/dL Albumin 2.8 L 3.2-4.8 g/dL Urine Color Light-orange Yellow Urine Clarity Turbid H Clear Urine pH 7.5 5.0-9.0 Urine Specific [place] 1.021 1.001-1.035 Urine Protein Trace H Negative Urine Ketones Trace Negative Urine Blood Negative Negative /uL Urine Nitrite Negative Negative Urine Bilirubin Negative Negative Urine Urobilinogen 4 H Negative mg/dL Urine Leukocyte Esterase Negative Negative /uL Urine RBC 1 0 - 4 /hpf Urine Microscopic WBC 3 0-5 /HPF Urine Squamous Epithelial Cells Few <5 /hpf Urine Bacteria Few H None Seen /hpf Urine Mucus Few None Seen Urine Glucose Normal Normal mg/dL Assessment/Plan Assessment/Plan We will admit to medical floor. We will check her LFTs and lipase and amylase ruled out any pancreatic problems. We will have a GI consultation. Given her history of liver cirrhosis with possible portal hypertension I will add a proton pump inhibitor. If her blood pressure tolerates consider adding low-dose propranolol. Patient counseled regarding diet exercise and weight loss. Physical therapy evaluation. Supportive care and treatment. Pain and nausea medications. Follow clinical management per clinical course and recommendations from the consultants. Discussed with the patient at bedside regarding care plan. Plan discussed with: Patient My Orders Orders - CHRISTOPHER WHALEN MD Procedure Category Date Status Time Pantoprazole Tablet PHA 06/05/24 In Process (Protonix Tablet) 17:00 Pt Request For Service PT 06/05/24 Logged 11:49 Lactulose Oral PHA 06/05/24 Verified 14:00 Morphine Extended PHA 06/05/24 Verified Release Tab (Oramorph 22:00 Comprehensive LAB 06/06/24 Verified Metabolic Panel 04:00 Lipase LAB 06/06/24 Verified 04:00 Lipase LAB 06/05/24 Verified 12:10 PTPTT LAB 06/05/24 Verified 12:10 Enoxaparin Sodium PHA 06/06/24 Verified (Lovenox) 10:00 Bilat Lower Dvt US 06/05/24 Verified 12:10 Echo 2d Mode Cardiac US 06/05/24 Verified DOP 12:10 Problem List: (1) Acute hepatic encephalopathy CHRISTOPHER WHALEN MD Jun 05, 2024 12:14
--- NOTE | 2024-06-05 13:11 | DVH ---
Procedure: US BiLat Lower DVT Study Date and Requested Time: 06/05/2024 12:45 PM History: leg swelling Comparison: None Technique: Multiple high resolution strauss-scale images with and without compression obtained of the bi lateral lower extremity veins, including the common femoral vein, deep femoral vein, proximal mid and distal superficial femoral vein, and popliteal vein. Additional limited images of the greater saphen ous vein also obtained. Augmentation performed as indicated. Color and spectral doppler flow images o btained as indicated. Findings: No visible intraluminal venous thrombus. No evidence of incompressibility or abnormal color or spectr al Doppler flow visualized in the bilateral lower extremity veins including, the common femoral vein, deep femoral vein, proximal mid and distal superficial femoral vein, and popliteal vein. Greater sap henous vein grossly unremarkable. Impression: No sonographic evidence of bilateral lower extremity deep venous thrombosis.
[2024-06-05 13:41] LABS: INR 1.6 (0.9-1.15); Partial Thromboplastin Time 37.9 SEC (24.5-34.5); Prothrombin Time 16.2 sec (9.3-11.8)
[2024-06-05] MEDS: PANTOPRAZOLE 40 MG TAB PO SCH (17:16)
[2024-06-05] MEDS: MORPHINE SULF 15mg ER tab PO SCH (21:45)
[2024-06-06] VITALS (7 sets, daily range): BP systolic 100–128; BP diastolic 46–81; PULSE 65–91; RESP 18–20; TEMP 97.3–98.9; O2SAT 94–98
[2024-06-06 06:14] LABS: Basophils # (auto) 0 10 ^3/uL (0-0.2); Eosinophils # (auto) 0.4 10 ^3/uL (0-0.8); Lymphocytes # (auto) 0.8 10 ^3/uL (0.4-5.4); Monocytes # (auto) 0.3 10 ^3/uL (0-1.3); White Blood Cell 4.5 10^3/uL (4.4-10.8)
[2024-06-06 06:22] LABS: Basophils % (auto) 0.8 % (0.0-2.0); Eosinophils % (auto) 8.2 % (0.0-7.0); Hematocrit 29.8 % (36.0-46.0); Lymphocytes % (auto) 17.3 % (10.0-50.0); Mean Corpuscular Hemoglobin 32.1 pg (28.0-32.0); Mean Corpuscular Hgb Conc. 33.7 g/dL (32.0-36.0); Mean Corpuscular Volume 95.4 fL (80.0-100.0); Neutrophils % (auto) 66.7 % (37.0-80.0); Nucleated Red Blood Cells % 0.1 %; Platelet Count (auto) 56 10^3/uL (140-450); Red Blood Cells 3.12 10^6/uL (4.0-5.20); Red Cell Distribution Width 14.8 % (11.8-14.3)
[2024-06-06 06:26] LABS: Alanine Aminotransferase 19 U/L (7-40); Albumin 2.4 g/dL (3.2-4.8); Alkaline Phosphatase 118 U/L (46-116); Anion Gap 8 (5-15); Aspartate Aminotransferase 39 U/L (13-40); BUN/Creatinine Ratio 14.5 (10.0-20.0); Bilirubin, Total 3.5 mg/dL (0.2-1.0); Blood Urea Nitrogen 11 mg/dL (9-23); Carbon Dioxide 25 mmol/L (20-31); Chloride 108 mmol/L (98-107); Glucose 119 mg/dL (74-106); Lipase 22 U/L (12-53); Potassium 3.7 mmol/L (3.5-5.1); Sodium 141 mmol/L (136-145); Total Protein 6.6 g/dL (5.7-8.2)
[2024-06-06] MEDS ORDERED: ENOXAPARIN SOD 40 MG/0.4 ML SYRINGE SC SCH (10:00)
[2024-06-06] MEDS ORDERED: PANT40T PO (15:30)
[2024-06-06] MEDS ORDERED: LACT10SO3 PO (15:30)
--- NOTE | 2024-06-06 15:32 | DVHDS2 ---
Discharge Summary Date of Admission Jun 05, 2024 at 07:15 Date of Discharge: Jun 06, 2024 Labs/Diagnostic Data: Laboratory Results Test 06/06/24 06:06 06/06/24 05:27 06/05/24 13:00 06/04/24 22:01 POC Glucose 97 mg/dl (70-106) White Blood Count 4.5 10^3/uL (4.4-10.8) Red Blood Count 3.12 10^6/uL (4.0-5.20) Hemoglobin 10.0 g/dL (12.2-16.2) Hematocrit 29.8 % (36.0-46.0) Mean Corpuscular Volume 95.4 fL (80.0-100.0) Mean Corpuscular Hemoglobin 32.1 pg (28.0-32.0) Mean Corpuscular Hemoglobin Concent 33.7 g/dL (32.0-36.0) Red Cell Distribution Width 14.8 % (11.8-14.3) Platelet Count 56 10^3/uL (140-450) Mean Platelet Volume 7.9 fL (6.9-10.8) Neutrophils (%) (Auto) 66.7 % (37.0-80.0) Lymphocytes (%) (Auto) 17.3 % (10.0-50.0) Monocytes (%) (Auto) 7.0 % (0.0-12.0) Eosinophils (%) (Auto) 8.2 % (0.0-7.0) Basophils (%) (Auto) 0.8 % (0.0-2.0) Neutrophils # (Auto) 3.0 10 ^3/uL (1.6-8.6) Lymphocytes # (Auto) 0.8 10 ^3/uL (0.4-5.4) Monocytes # (Auto) 0.3 10 ^3/uL (0-1.3) Eosinophils # (Auto) 0.4 10 ^3/uL (0-0.8) Basophils # (Auto) 0 10 ^3/uL (0-0.2) Nucleated Red Blood Cells 0.1 % Sodium Level 141 mmol/L (136-145) Potassium Level 3.7 mmol/L (3.5-5.1) Chloride Level 108 mmol/L (98-107) Carbon Dioxide Level 25 mmol/L (20-31) Anion Gap 8 (5-15) Blood Urea Nitrogen 11 mg/dL (9-23) Creatinine 0.76 mg/dL (0.550-1.02) Glomerular Filtration Rate Calc 90 mL/min (>90) BUN/Creatinine Ratio 14.5 (10.0-20.0) Serum Glucose 119 mg/dL (74-106) Calcium Level 8.0 mg/dL (8.7-10.4) Total Bilirubin 3.5 mg/dL (0.2-1.0) Aspartate Amino Transferase (AST) 39 U/L (13-40) Alanine Aminotransferase (ALT) 19 U/L (7-40) Alkaline Phosphatase 118 U/L (46-116) Ammonia 122 umol/L (11-32) Total Protein 6.6 g/dL (5.7-8.2) Albumin 2.4 g/dL (3.2-4.8) Lipase 22 U/L (12-53) Prothrombin Time 16.2 sec (9.3-11.8) Prothrombin Time INR 1.60 (0.9-1.15) Activated Partial Thromboplast Time 37.9 SEC (24.5-34.5) Lactic Acid Level 2.0 mmol/L (0.4-2.0) Test 06/04/24 19:07 06/04/24 18:57 Platelet Estimate Decreased Magnesium Level 1.6 mg/dL (1.6-2.6) Troponin I High Sensitivity < 3 ng/L (</=34) Urine Color Light-orange (Yellow) Urine Clarity Turbid (Clear) Urine pH 7.5 (5.0-9.0) Urine Specific [place] 1.021 (1.001-1.035) Urine Protein Trace (Negative) Urine Ketones Trace (Negative) Urine Blood Negative /uL (Negative) Urine Nitrite Negative (Negative) Urine Bilirubin Negative (Negative) Urine Urobilinogen 4 mg/dL (Negative) Urine Leukocyte Esterase Negative /uL (Negative) Urine RBC 1 /hpf (0 - 4) Urine Microscopic WBC 3 /HPF (0-5) Urine Squamous Epithelial Cells Few /hpf (<5) Urine Bacteria Few /hpf (None Seen) Urine Mucus Few (None Seen) Urine Glucose Normal mg/dL (Normal) Other Laboratory Tests 06/06/24 05:27 Brief Hx & Hospital Course: 59 y/o morbidly obese F, with a history of DM and HTN, presents with relative for c/o dizziness, lightheadedness,, headache, productive cough, nausea, vomiting, bilateral leg weakness, and unclear [id number], today. Patient endorses on onset of symptoms, last night. She comments concerns regarding her liver and suspecting her "liver enzymes" being "elevated," with endorsement of similar findings during previous PCP appointment, last week. Patient also reports on isolated episode of LUQ abdominal pain for 2x days that has since subsided on its own prior to ED visit. She denies having any hematemesis, diarrhea, constipation, urinary symptoms, fever, chills, or other associated symptoms at this time. In the ER she was noted to have mildly elevated ammonia level around 63. Given her abdominal pain symptoms with a history of underlying liver cirrhosis and elevated ammonia levels she was being brought into the hospital for further evaluation and management. She received lactulose and advised to continue rifaximin she takes at home for her encephalopathy with elevated ammonia level. While in the hospital her mental status is normal. Patient had good bowel movements. Patient treated supportively for possible gastritis felt secondary to NSAIDs related due to her chronic pain medications. Patient counseled regarding this. Patient is advised to continue proton pump inhibitor as she is prescribed. She is advised to follow up with the quality management coordinator for outpatient further evaluation including EGD as appropriate in 2-3 weeks. Otherwise while in the hospital patient's abdominal pain symptoms resolved. She was tolerating diet. No nausea vomiting. Mentation is normal. Therefore it is felt she could be safely discharged home. I have talked with the patient regarding her hospital diagnosis, treatment she received, discharge medications, discharge instructions and follow-up plan of care. She has verbalized understanding of these and agree with the care plan as outlined. Condition at Discharge: Stable Final Diagnosis/Problems List Hepatic encephalopathy, Gastritis, chronic pain syndrome Discharge Disposition: Home Discharge Instruct/Medications Diet: Consistent carbohydrate, Cardiac 2g Na,low cholest Activity: No Restrictions, As Tolerated Follow Up/Referral: Physicians Assistant Dr. Copeland after two weeks for the patient gastritis/reflux disease. Medications: To continue lactulose and other home medications as you were taking. Continue medication as prescribed New Medications: Pantoprazole Sodium Sesquihydr (Pantoprazole Sodium) 40 Mg Tab 40 MG PO BID, #60 TAB Continued Medications: Lactulose (Lactulose) 10 Gm/15 Ml [place] 30 ML PO Q6HR, #1200 ML (This prescription has been renewed) Discharge Statement: "Patient was advised to return to the ER or call 911 if any headaches, dizziness, shortness of breath, chest pain, abdominal pain, bleeding, fevers, or worsening of medical condition. Patient was counseled about treatment plan, medications, possible side effects, patientverbalized understanding. All questions were answered to the best of my ability. This discharge took greater then 30 minutes in planning, reviewing documentation, counseling the patient, and discussing with other team members." ASSESSMENT ASSESSMENT Assessment Hepatic encephalopathy, Gastritis, chronic pain syndrome CHRISTOPHER WHALEN MD Jun 06, 2024 15:32
--- NOTE | 2024-06-06 15:51 | DVHSR ---
APPROVED REPORT EXAM: Two-dimensional and M-mode echocardiogram with Doppler and color Doppler. Blood Pressure: 117/61 mmHg INDICATION liver cirrhosis, edema Surgery/Intervention Site: RISK FACTORS Obesity: Height: 5'3, Weight: 250 DIMENSIONS LVDd4.6 (3.8-5.7cm)LA (2D)3.8 (1.9-4.0cm)Aortic Root2.6 (2.0-3.7cm) LVDs2.9 (2.5-4.0cm)LA (MM) (1.9-4.0cm)Aortic Cusp Exc1.4 (1.5-2.0cm) EF (%) 60.0 (55-70%)Rt. Atrium3.9 (1.9-4.0cm)Asc. Aorta3.2 cm IVSd1.0 (0.7-1.1cm)RV (D) (1.8-2.4cm) PWd0.7 (0.7-1.1cm) Mitral Valve MitralMitral Stenosis E wave0.99m/sMV Mean GR.mmHg A wave1.23m/sMV Peak GR.mmHg E/A ratio0.82D MVAcm2 DECEL [id number] 1/2 [place] Aortic Valve Aortic ValveAortic Stenosis V11.22m/[place] Mean GR.10mmHg V22.06m/[place] Peak GR.17mmHg LVOT Diameter1.7 (1.8-2.4cm)Doppler AVA1.34cm2 Pulmonic Valve V21.46m/s Tricuspid Valve TR Velocity2.76m/s [id number] Conclusion Sinus rhythm. Normal chamber sizes. Valves are normal. Mild mitral annular calcification. There is calcification at the base of the pos terior mitral leaflet and mild aortic sclerosis Left ventricular systolic performance is preserved at 60% with normal RV function. Mild TR. No pericardial effusion masses or vegetations.
== END 2024-06-06 17:05 | disposition home or self-care (01) | DRG 442 ==
LOC: ER 18:28 → OVERFLOW 06-05 07:15 → TELE-EAST 06-05 20:50
PROVIDERS: ADMIT Internal Medicine; ATTEND Internal Medicine
DX: K76.82 Hepatic encephalopathy (principal); K76.6 Portal hypertension; M86.652 Other chronic osteomyelitis, left thigh; Z68.41 Body mass index [BMI] 40.0-44.9, adult; E86.0 Dehydration; E66.01 Morbid (severe) obesity due to excess calories; G89.4 Chronic pain syndrome; K74.60 Unspecified cirrhosis of liver; K29.70 Gastritis, unspecified, without bleeding; F17.200 Nicotine dependence, unspecified, uncomplicated; M16.0 Bilateral primary osteoarthritis of hip; I10 Essential (primary) hypertension; K76.0 Fatty (change of) liver, not elsewhere classified; E13.69 Other specified diabetes mellitus with other specified complication; Z79.899 Other long term (current) drug therapy
CPT/HCPCS: 36415; 70450; 74178; 80053; 81001; 82140; 82962; 83605; 83690; 83735; 84484; 85025; 85610; 85730; 87040; 93005; 93306; 93970; 96365; 97163; 99291; G0378; J1815; J2405; J2543

== ENCOUNTER 2024-07-11 18:55 | Inpatient (IN) | payer OTHER, MEDICAID ==
[~2024-07-11] VITALS: Ht 152.4 cm; Wt 108.0 kg
--- NOTE | 2024-07-11 19:08 | ECG ---
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
--- NOTE | 2024-07-11 19:32 | ED.PDOC ---
History of Present Illness HPI Comments 59-year-old female came to ER due to shortness of breath. Patient states she was discharged here 5 days ago due to her liver cirrhosis. States she has been short of breath since she was discharged, but progressively worsened in the past few days. Complaining also of abdominal distention, generalized weakness and easy fatigability, with worsening by pedal edema. For the past 2 days, patient also has been experiencing chest pains which persisted, prompting patient to come to the emergency room. Upon arrival blood pressure 94/46 mm Hg, saturating 98% on room air. Chief Complaint: Shortness of Breath Time Seen by MD: 19:31 Primary Care Provider: BRENDA Robbins Notes: Nurses Notes Allergies: Coded Allergies: NO KNOWN ALLERGIES (Unverified , 01/08/23) Information Source: Patient Mode of Arrival: Ambulatory Severity: Moderate Timing: Days Duration: Since onset Review of Systems REVIEW OF SYSTEMS: No fever, no chills, or fatigue HEENT: No sore throat, no earache, no congestion, no neck pain. Cardiac: (+) chest pain. No palpitations. Lungs: (+) shortness of breath, no cough. GI: No nausea, no vomiting, no diarrhea, no constipation, no abdominal pain : No dysuria, frequency, or urgency. No hematuria. Musculoskeletal: No joint pain , no joint swelling, no extremity edema. Skin: No rash, no itching. Neuro: No headache, no dizziness, (+) weakness Vital Signs Vital Signs Date Time Temp Pulse Resp B/P (MAP) Pulse Ox O2 Delivery O2 Flow Rate FiO2 07/11/24 22:26 98.6 100 22 110/89 (96) 96 98.6 07/11/24 19:46 Room Air* 0 21 Physical Exam General: Awake, alert and oriented. No acute distress. Skin: Skin in warm, dry and intact. Appropriate color for ethnicity. Nailbeds pink with no cyanosis. HEENT: The head is normocephalic and atraumatic. Conjunctivae are clear without exudates or hemorrhage. Sclera is non-icteric. EOM are intact. No signs of nys tagmus. Eyelids are normal in appearance without swelling or lesions. Oral mucosa is pink and moist Neck: The neck is supple with normal range of motion. No JVD. Cardiac: Heart rate and rhythm are normal. No murmurs, gallops, or rubs are auscultated. Respiratory: Patient appears winded, speaking in short sentences. Lung sounds are clear in all lobes bilaterally without rales, rhonchi, or wheezes. Abdominal: Abdomen is soft, non-tender without distention. Bowel sounds are present and normoactive in all four quadrants. Extremities: 2+ pitting bilateral lower extremity edema Neurological: The patient is awake, alert and oriented to person, place,. Speech is slow There is no facial asymmetry. 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 Was a procedure done?: No EKG EKG : Pulse Rate (adult): 98 Comments Sinus arrhythmia. No STEMI Differential Dx Considerations may include: Anemia, electrolyte imbalance, liver cirrhosis, hypotension, encephalopathy, pneumonia, CHF X-Ray, Labs, Meds, VS Vital Signs Date Time Temp Pulse Resp B/P (MAP) Pulse Ox O2 Delivery O2 Flow Rate FiO2 07/11/24 22:26 98.6 100 22 110/89 (96) 96 98.6 07/11/24 21:20 100 26 108/84 (92) 97 07/11/24 21:07 98.2 07/11/24 20:00 108 07/11/24 19:46 93 Room Air* 0 21 07/11/24 19:46 22 93 Room Air* 0 21 07/11/24 19:32 98 07/11/24 19:30 97.8 100 26 112/40 (64) 96 97.8 07/11/24 19:07 20 96 Room Air* 0 21 07/11/24 19:04 98 07/11/24 19:03 97.9 108 20 94/46 (62) 96 97.9 Lab Test 07/11/24 22:27 07/11/24 20:33 07/11/24 19:35 07/11/24 19:33 Range/Units Prothrombin Time 16.3 H 9.3-11.8 sec Prothrombin Time INR 1.61 H 0.9-1.15 Troponin I High Sensitivity 25 21 15 </=34 ng/L Triglycerides Level 74 < 150 mg/dL Cholesterol Level 79 < 200 mg/dL LDL Cholesterol 24 < 100 mg/dL HDL Cholesterol 28 L 40-59 mg/dL Total Bilirubin 4.7 H 0.2-1.0 mg/dL Direct Bilirubin 1.3 H <0.3 mg/dL Aspartate Amino Transferase (AST) 65 H 13-40 U/L Alanine Aminotransferase (ALT) 30 7-40 U/L Alkaline Phosphatase 145 H 46-116 U/L Total Protein 7.9 5.7-8.2 g/dL Albumin 2.9 L 3.2-4.8 g/dL Blood Gas Specimen Type Arterial Blood Gas Sample Site Left radial Blood Gas Patient Temperature 37.0 Arterial Blood Date Drawn [id number] Arterial Blood pH 7.344 L 7.350-7.450 Arterial Blood Partial Pressure CO2 41.9 32.0-45.0 mmHg Arterial Blood Partial Pressure O2 59.3 L 83.0-108.0 mmHg Arterial Blood HCO3 22.3 21.0-28.0 mmol/L Arterial Blood Oxygen Saturation 87.1 L 94.0-98.0 % Arterial Blood Base Excess -3.2 L -2.0-3.0 mmol/L Arterial Blood Oxyhemoglobin 85.7 L 94.0-98.0 % Arterial Blood Carboxyhemoglobin 1.1 0.5-1.5 % Arterial Blood Methemoglobin 0.5 0.0-1.5 % Martin Test Yes Blood Gas Total Hemoglobin 11.20 L 12.0-16.0 g/dL Blood Gas Modality Room air FiO2 % 21.0 White Blood Count 6.1 4.4-10.8 10^3/uL Red Blood Count 3.22 L 4.0-5.20 10^6/uL Hemoglobin 10.6 L 12.2-16.2 g/dL Hematocrit 31.2 L 36.0-46.0 % Mean Corpuscular Volume 97.0 80.0-100.0 fL Mean Corpuscular Hemoglobin 33.0 H 28.0-32.0 pg Mean Corpuscular Hemoglobin Concent 34.0 32.0-36.0 g/dL Red Cell Distribution Width 17.2 H 11.8-14.3 % Platelet Count 89 L 140-450 10^3/uL Mean Platelet Volume 7.8 6.9-10.8 fL Neutrophils (%) (Auto) 66.6 37.0-80.0 % Lymphocytes (%) (Auto) 15.8 10.0-50.0 % Monocytes (%) (Auto) 9.6 0.0-12.0 % Eosinophils (%) (Auto) 7.4 H 0.0-7.0 % Basophils (%) (Auto) 0.6 0.0-2.0 % Neutrophils # (Auto) 4.0 1.6-8.6 10 ^3/uL Lymphocytes # (Auto) 1.0 0.4-5.4 10 ^3/uL Monocytes # (Auto) 0.6 0-1.3 10 ^3/uL Eosinophils # (Auto) 0.5 0-0.8 10 ^3/uL Basophils # (Auto) 0 0-0.2 10 ^3/uL Nucleated Red Blood Cells 0.1 % Platelet Estimate Decreased Sodium Level 134 L 136-145 mmol/L Potassium Level 3.4 L 3.5-5.1 mmol/L Chloride Level 101 98-107 mmol/L Carbon Dioxide Level 23 20-31 mmol/L Anion Gap 10 5-15 Blood Urea Nitrogen 14 9-23 mg/dL Creatinine 1.68 H 0.550-1.02 mg/dL Glomerular Filtration Rate Calc 35 >90 mL/min BUN/Creatinine Ratio 8.3 L 10.0-20.0 Serum Glucose 154 H 74-106 mg/dL Calcium Level 8.7 8.7-10.4 mg/dL Ammonia 81 H 11-32 umol/L B-Type Natriuretic Peptide 71.31 0-100 pg/mL Plasma/Serum Blood Alcohol < 3.0 <10 mg/dL Current Medications Medications (Trade) Dose Ordered Sig/Jeri Route Start Time Stop Time Status Last Admin Albuterol (Ventolin Medneb) 2.5 mg ONCE ONCE NEB 07/11/24 19:15 07/11/24 19:16 DC 07/11/24 19:45 Acetaminophen (Tylenol Tablet) 650 mg ONCE ONCE PO 07/11/24 20:15 07/11/24 20:16 DC 07/11/24 21:07 Sodium Chloride 1,000 ml @ 130 mls/hr [id number] ONCE IV 07/11/24 22:00 07/12/24 05:41 07/11/24 23:28 Images Reviewed?: Images reviewed and evaluated by me (Independent interpretation of chest x-ray: No acute disease) Time of 1ST Reevaluation: 19:26 Reevaluation 1ST: Unchanged Patient Education/Counseling: Other (Need for admission) Family Education/Counseling: No Family Present Departure 1 Departure Time of Disposition: 21:50 Impression: Primary Impression: Shortness of breath Additional Impressions: RUBY (acute kidney injury) Hyperammonemia Chest pain Liver cirrhosis Disposition: ADMITTED INPATIENT Condition: Stable Comments Discussed with Arlin Montoya. Case Patient admitted to hospitalist service for further treatment, evaluation and monitoring. Extensive evaluation was performed in attempt to identify or rule out: (See differential diagnosis section) The following tests were ordered, and results were reviewed by me and discussed with patient: (See diagnostic results section) The following test were independently interpreted by me: EKG, chest x-ray I reviewed and agreed with the following test results read by other providers: Chest x-ray I reviewed the following notes from the pt's past medical encounters: N/A Additional information was gathered from interviewing the following independent historians: N/A Discussion of management or test interpretation with external physician/other qualified health child caregiver private home: Arlin Montoya MENTAL HYGIENE CONSULTANT Addressed an acute or chronic illness that poses a threat to life or bodily function: Hyperammonemia, dyspnea, RUBY, low blood pressures Decision regarding hospitalization or escalation of hospital level of care: Risk and benefits of admission for further treatment of patient's condition was considered. Due to patient's current clinical condition, high risk of decline and poor outcome if discharged and need for further inpatient management and monitoring, patient will be admitted to the hospital. Discussed with patient. Drug therapy requiring intensive monitoring for toxicity: N/A Parenteral controlled substances: N/A Decision regarding elective major surgery with identified patient or procedure risk factors: N/A Decision regarding emergency major surgery: N/A Decision not to resuscitate or to de-escalate care because of poor prognosis: N/A Diagnosis or treatment significantly limited by social determinants of health: N/A Critical Care Note Critical Care Time?: No Stability Stability form required: No Heart Score Heart Score: Heart Score Response (Comments) Value History Moderate Suspicious 1 EKG Repolarization Disturb 1 Age 45-64 1 Risk Factors >3 or Hx ASHD 2 Troponin Normal limit 0 Total 5 I personally scribed for JAM NUNEZ MD ([email or web address]) on 07/11/24 at 19:32. Electronically submitted by Efra Newton ([email or web address]). JAM NUNEZ MD July 11, 2024 19:32
[2024-07-11] MEDS: ALBUTEROL SULF 2.5 MG/0.5ML(0.5%) NEB SOLN NEB ONE (19:45)
[2024-07-11 19:51] LABS: Base Excess -3.2 mmol/L (-2.0-3.0)
[2024-07-11 19:51] LABS: Basophils # (auto) 0 10 ^3/uL (0-0.2); Basophils % (auto) 0.6 % (0.0-2.0); Eosinophils # (auto) 0.5 10 ^3/uL (0-0.8); Eosinophils % (auto) 7.4 % (0.0-7.0); Hematocrit 31.2 % (36.0-46.0); Hemoglobin 10.6 g/dL (12.2-16.2); Lymphocytes % (auto) 15.8 % (10.0-50.0); Monocytes # (auto) 0.6 10 ^3/uL (0-1.3); Monocytes % (auto) 9.6 % (0.0-12.0); Neutrophils % (auto) 66.6 % (37.0-80.0); Nucleated Red Blood Cells % 0.1 %; Red Blood Cells 3.22 10^6/uL (4.0-5.20); Red Cell Distribution Width 17.2 % (11.8-14.3); White Blood Cell 6.1 10^3/uL (4.4-10.8)
[2024-07-11 19:59] LABS: Chloride 101 mmol/L (98-107)
[2024-07-11 20:00] LABS: Anion Gap 10 (5-15); Calcium 8.7 mg/dL (8.7-10.4); Carbon Dioxide 23 mmol/L (20-31)
[2024-07-11 20:05] LABS: BUN/Creatinine Ratio 8.3 (10.0-20.0); Blood Urea Nitrogen 14 mg/dL (9-23)
[2024-07-11 20:10] LABS: Blood Alcohol < 3.0 mg/dL (<10); Glucose 154 mg/dL (74-106); Potassium 3.4 mmol/L (3.5-5.1); Sodium 134 mmol/L (136-145)
[2024-07-11 20:12] LABS: Platelet Count (auto) 89 10^3/uL (140-450); Platelet Estimate Decreased
--- NOTE | 2024-07-11 20:30 | DVH ---
CHEST RADIOGRAPH Indication: Shortness of breath Technique: Single frontal view of the chest was obtained COMPARISON: XY CHEST PORTABLE on DOS: 06/28/24, XY CHEST PORTABLE on DOS: 01/09/23 FINDINGS: Lines and Tubes: None Lungs: Clear Pleura: No effusion.No pneumothorax. Cardiomediastinal contours: Unremarkable IMPRESSION: No acute disease.
[2024-07-11] MEDS: ACETAMINOPHEN 325 MG TAB PO ONE (21:07)
[2024-07-11 22:16] LABS: Total Protein 7.9 g/dL (5.7-8.2)
[2024-07-11 22:19] LABS: Albumin 2.9 g/dL (3.2-4.8); Bilirubin, Direct 1.3 mg/dL (<0.3); Bilirubin, Total 4.7 mg/dL (0.2-1.0)
[2024-07-11] MEDS ORDERED: DEXTROSE (50%) 50ML SYRG IV PRN (22:45)
[2024-07-11] MEDS ORDERED: NITROGLYCERIN 0.4 MG SL TAB SL PRN (22:45)
[2024-07-11 23:12] LABS: INR 1.61 (0.9-1.15); Prothrombin Time 16.3 sec (9.3-11.8)
[2024-07-11 23:14] LABS: Triglycerides 74 mg/dL (< 150)
[2024-07-11 23:15] LABS: LDL Cholesterol 24 mg/dL (< 100)
[2024-07-11 23:16] LABS: Cholesterol 79 mg/dL (< 200)
[2024-07-11 23:28] LABS: HDL Cholesterol 28 mg/dL (40-59)
[2024-07-11] MEDS: SODIUM CHLORIDE 0.9% 1,000 ML IV ONE (23:28)
--- NOTE | 2024-07-11 23:29 | DVH ---
INDICATION: RUBY TECHNIQUE: Multiple real-time sonographic images of the kidneys and bladder were obtained. COMPARISON: None FINDINGS: Moderate bilateral renal atrophy. RIGHT kidney measures 9.1 cm in length. No hydronephrosis. LEFT kidney measures 8.8 cm in length. No hydronephrosis. Trace abdominal ascites. The urinary bladder is contracted. No large intraluminal masses are seen in the bladder. IMPRESSION: 1. Bilateral renal atrophy. 2. Trace abdominal ascites.
[2024-07-12] VITALS (27 sets, daily range): BP systolic 97–138; BP diastolic 43–70; PULSE 78–100; RESP 7–24; TEMP 97.8; O2SAT 92–100
[2024-07-12] MEDS: LACTULOSE 20Gm/30ML SOLN PO SCH (00:34)
[2024-07-12] MEDS: FUROSEMIDE 40 MG/4 ML VIAL IV ONE (02:20)
[2024-07-12] MEDS ORDERED: HYDR8TAB46 PO (02:41)
[2024-07-12] MEDS: ALBUMIN 25% 50 ML IV ONE (02:47)
--- NOTE | 2024-07-12 02:57 | DVHHP2 ---
Admitting Diagnosis: Hyperammonemia , RUBY, CP r/o ACS, liver cirrhosis History of Present Illness History Source: Patient Exam Limitations: No limitations HPI Mrs. Maya Ruff is a 59-year-old female with a history of liver cirrhosis, DM, hypertension, Seizures who presents with a chief complaint of shortness of breath. Patient states she was discharged here 5 days ago due to her liver cirrhosis. States she has been short of breath since she was discharged, but progressively worsened in the past few days. Complaining also of abdominal distention, generalized weakness and easy fatigability, with worsening by pedal edema. For the past 2 days, patient also has been experiencing chest pains which persisted, prompting patient to come to the emergency room. Patient repor ts non radiating left sided chest pain and left upper abdominal pain. Patient denies diarrhea, constipation, dysuria, hematuria. Patient admitted for further evaluation and treatment. Home Meds Reported Medications Hydromorphone Hcl (Dilaudid) 8 Mg Tab, 4 MG PO TID for rheumatoid arthritis, TAB 07/12/24 Past Medical History Cardiac: HTN Pulmonary: No pertinent Hx Central Nervous System: Seizure GI: No pertinent Hx Hemotology/Oncology: No pertinent Hx Hepatobiliary: Cirrhosis Psychiatric: No pertinent Hx Musculoskeletal: No pertinent Hx Rheumotologic: No pertinent Hx Infectious Disease: No peritnent Hx ENT: No pertinent Hx Renal/: No pertinent Hx Endocrine: NIDDM Dermatology: No pertinent Hx Patient Family History: Cancer of small intestine G8 MOTHER Diabetes mellitus G8 MOTHER FH: cirrhosis G8 FATHER Smoker: No Hx (Negative) Alocohol: None Drugs: None Lives with: With family Domestic Violence: Neg Review of Systems Constitutional: No symptom reported Ears, Nose, & Throat: No symptom reported Eyes: No symptom reported Pulmonary/Respiratory: Dyspnea Cardiovascular: Chest Pain Gastrointestinal: Abdominal Pain Genitourinary: No symptom reported Musculoskeletal: No symptom reported Skin: No symptom reported Psychiatric: No symptom reported Endocrine: No symptom reported Hemotologic/Lymphatic: No symptom reported H&P Exam Vital Signs Vital Signs Date Time Temp Pulse Resp B/P (MAP) Pulse Ox O2 Delivery O2 Flow Rate FiO2 07/12/24 02:20 91/65 07/12/24 00:56 100 24 93 Nasal Cannula* 4 36 07/11/24 22:26 98.6 98.6 General Appeara: Well developed, Well nourished Head Exam: Normal inspection Neck Exam: Normal inspection, Non-tender, Normal alignment Eye Exam: bilateral eye Normal inspection, bilateral eye PERRL, bilateral eye EOMI Ear Exam: bilateral ear Auricle normal Nasal Exam: Normal inspection Mouth: Normal Inspection Pulmonary/Respiratory: Normal inspection, Normal breath sounds, Chest non- tender, Lungs clear Cardiovascular/Chest: Normal inspection, Regular rate, Normal Rhythm Peripheral Pulses: 2+ dorsalis pedis (R), 2+ dorsalis pedis (L), 2+ Radial (R), 2+ Radial (L) Abdominal Exam: Normal bowel sounds, Soft, No tenderness Rectal Exam: Deferred Back Exam: Normal inspection Legs: bilateral leg swelling (+1 pitting edema) Neuro/Mental St: Alert, Oriented Appearance: Appropriate appearance, Appropriate insight Eye contact/ Speech: Cooperative, Good eye contact, Normal speech Thoughts/Psych: Normal thought pattern Skin Exam: Normal inspection, Normal color, Warm/dry Labs/Xrays Labs Test 07/11/24 22:27 07/11/24 20:33 07/11/24 19:35 07/11/24 19:33 Range/Units Prothrombin Time 16.3 H 9.3-11.8 sec Prothrombin Time INR 1.61 H 0.9-1.15 Troponin I High Sensitivity 25 </=34 ng/L Triglycerides Level 74 < 150 mg/dL Cholesterol Level 79 < 200 mg/dL LDL Cholesterol 24 < 100 mg/dL HDL Cholesterol 28 L 40-59 mg/dL Total Bilirubin 4.7 H 0.2-1.0 mg/dL Direct Bilirubin 1.3 H <0.3 mg/dL Aspartate Amino Transferase (AST) 65 H 13-40 U/L Alanine Aminotransferase (ALT) 30 7-40 U/L Alkaline Phosphatase 145 H 46-116 U/L Total Protein 7.9 5.7-8.2 g/dL Albumin 2.9 L 3.2-4.8 g/dL Blood Gas Specimen Type Arterial Blood Gas Sample Site Left radial Blood Gas Patient Temperature 37.0 Arterial Blood Date Drawn [id number] Arterial Blood pH 7.344 L 7.350-7.450 Arterial Blood Partial Pressure CO2 41.9 32.0-45.0 mmHg Arterial Blood Partial Pressure O2 59.3 L 83.0-108.0 mmHg Arterial Blood HCO3 22.3 21.0-28.0 mmol/L Arterial Blood Oxygen Saturation 87.1 L 94.0-98.0 % Arterial Blood Base Excess -3.2 L -2.0-3.0 mmol/L Arterial Blood Oxyhemoglobin 85.7 L 94.0-98.0 % Arterial Blood Carboxyhemoglobin 1.1 0.5-1.5 % Arterial Blood Methemoglobin 0.5 0.0-1.5 % Martin Test Yes Blood Gas Total Hemoglobin 11.20 L 12.0-16.0 g/dL Blood Gas Modality Room air FiO2 % 21.0 White Blood Count 6.1 4.4-10.8 10^3/uL Red Blood Count 3.22 L 4.0-5.20 10^6/uL Hemoglobin 10.6 L 12.2-16.2 g/dL Hematocrit 31.2 L 36.0-46.0 % Mean Corpuscular Volume 97.0 80.0-100.0 fL Mean Corpuscular Hemoglobin 33.0 H 28.0-32.0 pg Mean Corpuscular Hemoglobin Concent 34.0 32.0-36.0 g/dL Red Cell Distribution Width 17.2 H 11.8-14.3 % Platelet Count 89 L 140-450 10^3/uL Mean Platelet Volume 7.8 6.9-10.8 fL Neutrophils (%) (Auto) 66.6 37.0-80.0 % Lymphocytes (%) (Auto) 15.8 10.0-50.0 % Monocytes (%) (Auto) 9.6 0.0-12.0 % Eosinophils (%) (Auto) 7.4 H 0.0-7.0 % Basophils (%) (Auto) 0.6 0.0-2.0 % Neutrophils # (Auto) 4.0 1.6-8.6 10 ^3/uL Lymphocytes # (Auto) 1.0 0.4-5.4 10 ^3/uL Monocytes # (Auto) 0.6 0-1.3 10 ^3/uL Eosinophils # (Auto) 0.5 0-0.8 10 ^3/uL Basophils # (Auto) 0 0-0.2 10 ^3/uL Nucleated Red Blood Cells 0.1 % Platelet Estimate Decreased Sodium Level 134 L 136-145 mmol/L Potassium Level 3.4 L 3.5-5.1 mmol/L Chloride Level 101 98-107 mmol/L Carbon Dioxide Level 23 20-31 mmol/L Anion Gap 10 5-15 Blood Urea Nitrogen 14 9-23 mg/dL Creatinine 1.68 H 0.550-1.02 mg/dL Glomerular Filtration Rate Calc 35 >90 mL/min BUN/Creatinine Ratio 8.3 L 10.0-20.0 Serum Glucose 154 H 74-106 mg/dL Calcium Level 8.7 8.7-10.4 mg/dL Ammonia 81 H 11-32 umol/L B-Type Natriuretic Peptide 71.31 0-100 pg/mL Plasma/Serum Blood Alcohol < 3.0 <10 mg/dL Assessment/Plan Problem List: (1) Chest pain (2) Shortness of breath (3) RUBY (acute kidney injury) (4) Liver cirrhosis (5) Hyperammonemia (6) Elevated bilirubin Plan This is a 59 yo female with known history of liver cirrhosis, DM, hypertension, Seizures who presents with shortness of breath, chest pain, increased fatigue. Patient was found to have 1. Hyperammonemia 2. Acute Kidney Injury 3. CP r/o ACS 4. Abdominal distention 5. Elevated Bilirubin 6. Liver cirrhosis 7, DM with hyperglycemia 8, Hypotension Plan Admit Telemetry upgrade to ICU if vasopressors started as needed to keep MAP >65 Cardiology consultation, 2D echo , lipid panel Glucose monitoring ac & hs coverage with insulin ss CT abd/pelvis wo contrast Vasopressors ass needed Diuresis Lasix , Lactulose PO Discussed all above with patient who verbalized agreement and understanding of care plan. All questions were answered. Discussed care plan with patient nurse Chanel GANDHI. Discussed assessment and care plan with supervising MD. Plan discussed with: Patient, Other Code Visit Code Visit Total Time (mins): 45 Additional Comments Additional Comments Additional Comments 59 yo female with known history of liver cirrhosis, DM, hypertension, Seizures who presents with shortness of breath, chest pain, increased fatigue. Patient was found to have 1. Chest pain rule out NM 2. Advanced liver cirrhosis with ascites 3. Hyperammonemia 4. Acute kidney injury suspected secondary to vasomotor nephropathy 5. Diabetes mellitus type 2 6. Hypotension -titrate Levophed for systolic blood pressure more than 90, lactulose for 2-3 soft bowel movements -physical therapy evaluation and treatment BORIS FREDERICK BUTTON CLAMPER July 12, 2024 02:57 ED ALBERTO MD July 12, 2024 14:50
[2024-07-12 03:36] LABS: Urine Bacteria FEW /hpf (None Seen); Urine Blood TRACE /uL (Negative); Urine Budding Yeast OCCASIONAL /hpf (None Seen); Urine Clarity Ex.Turbid (Clear); Urine Color Dark-Yellow (Yellow); Urine Hyaline Cast MANY /lpf (0 - 2); Urine Mucus FEW (None Seen); Urine Protein, UAD 1+ (Negative); Urine Specific Gravity 1.022 (1.001-1.035); Urine Squamous Epithelial Cell MANY /hpf (<5); Urine Urobilinogen 2 mg/dL (Negative); Urine WBC 13 /HPF (0-5); Urine pH 5.5 (5.0-9.0)
--- NOTE | 2024-07-12 04:29 | DVH ---
Exam: CT CT AB PEL WO CON-NO ORAL OR IV History: abd distention Comparison Study: CT CT AB PEL WO CON-NO ORAL OR IV on DOS: 06/28/24, CT [facility] AB PEL WO CON-NO IV/ORAL on DOS: 01/09/23 Technique: Multidetector spiral CT of the abdomen was performed from lung bases to pubic symphysis. I maging was performed without IV contrast. Axial, coronal and sagittal multiplanar reformats were obta ined from the axial data set by the technologist. Radiation Dose : 1. Abdomen/Pelvis: CTDIvol 24.48 mGy, DLP 1473.47 cm mGy*cm. Findings: Evaluation of solid organs is limited due to lack of intravenous contrast use. Lung Bases: No acute or significant lung base finding. Normal heart size. No pleural or pericardial effusion. Interval resolution of pleural effusion. Liver: Diffusely cirrhotic hepatic morphology redemonstrated. No focal lesions. Gallbladder and Biliary Tree: Unremarkable Spleen: Stable enlargement, measuring 17.0 cm. Pancreas: The pancreas is grossly normal in appearance. Adrenal Glands: Unremarkable Kidneys: Kidneys are grossly normal without calculi or hydronephrosis. Bladder: Grossly unremarkable for degree of distention, containing a Vazquez catheter. Bowel: The stomach is grossly normal in appearance. Small bowel and colon are normal in caliber and d istribution. Diverticulosis coli. The appendix is not visualized; however, no secondary findings of a cute appendicitis identified. Ascites: Slight interval decrease in abdominopelvic ascites. Lymphadenopathy: No mesenteric, retroperitoneal or periportal lymphadenopathy. Abdominal Wall and Mesentery: Unremarkable. Vasculature: The visualized abdominal aorta is normal in size and caliber. Atherosclerotic vascular c alcifications. Prominent portal venous and splenic collateral vessels redemonstrated, consistent with cirrhosis and portal venous hypertension. Pelvic Organs: Unremarkable Musculoskeletal: No aggressive focal bony lesions, acute fractures or dislocation. Hardware within th e bilateral hip status post arthroplasty with associated beam hardening artifact partially obscuring the findings of the pelvis. IMPRESSION: 1. Interval resolution of small right pleural effusion. 2. Stable sequelae of hepatic cirrhosis, splenomegaly and portal venous hypertension. 3. Slight interval decrease in volume of abdominopelvic ascites. 4. Diverticulosis coli. Radiation optimization: All CT scans at this facility use at least one of these dose optimization joyce hniques: automated exposure control mA and/or kV adjustment per patient size (includes targeted exam s where dose is matched to clinical indication) or iterative reconstruction.
[2024-07-12] MEDS: KETOROLAC TROMETH 30 MG/ML 1ML VIAL IV ONE (05:57)
[2024-07-12 06:09] LABS: Basophils # (auto) 0 10 ^3/uL (0-0.2); Basophils % (auto) 0.8 % (0.0-2.0); Eosinophils # (auto) 0.3 10 ^3/uL (0-0.8); Eosinophils % (auto) 7.6 % (0.0-7.0); Hemoglobin 9.2 g/dL (12.2-16.2); Lymphocytes # (auto) 0.9 10 ^3/uL (0.4-5.4); Lymphocytes % (auto) 21.7 % (10.0-50.0); Mean Corpuscular Hemoglobin 34.2 pg (28.0-32.0); Mean Corpuscular Hgb Conc. 35.4 g/dL (32.0-36.0); Mean Corpuscular Volume 96.5 fL (80.0-100.0); Monocytes # (auto) 0.4 10 ^3/uL (0-1.3); Monocytes % (auto) 10.6 % (0.0-12.0); Neutrophils # (auto) 2.4 10 ^3/uL (1.6-8.6); Neutrophils % (auto) 59.3 % (37.0-80.0); Nucleated Red Blood Cells % 0.1 %; Platelet Count (auto) 51 10^3/uL (140-450); Red Blood Cells 2.69 10^6/uL (4.0-5.20); Red Cell Distribution Width 16.7 % (11.8-14.3)
[2024-07-12 06:24] LABS: Alanine Aminotransferase 24 U/L (7-40); Alkaline Phosphatase 109 U/L (46-116); Carbon Dioxide 25 mmol/L (20-31); Chloride 100 mmol/L (98-107)
[2024-07-12 06:25] LABS: Anion Gap 9 (5-15); BUN/Creatinine Ratio 8.7 (10.0-20.0); Blood Urea Nitrogen 15 mg/dL (9-23); Total Protein 6.7 g/dL (5.7-8.2)
[2024-07-12 06:32] LABS: Albumin 2.6 g/dL (3.2-4.8); Aspartate Aminotransferase 53 U/L (13-40); Calcium 8.1 mg/dL (8.7-10.4); Glucose 121 mg/dL (74-106); Potassium 3.1 mmol/L (3.5-5.1); Sodium 134 mmol/L (136-145)
[2024-07-12] MEDS: ACCU-CHEK COMFORT CURVE STRIP VI SCH (06:52)
[2024-07-12] MEDS: InsuLIN REG 1unit/0.01ml Soln (100units/ml) SC SCH (06:53)
[2024-07-12] MEDS: NOREPINEPHRINE 8 MG/250ML KIT 250 ML IV PRN (07:04)
--- NOTE | 2024-07-12 08:35 | DVHINCON2 ---
Date of service: July 12, 2024 Referring Physician Arlin Montoya, nurse practitioner Reason for Consultation Acute kidney injury History of Present Illness Patient is 59-year-old female with past medical history of liver cirrhosis, DM, hypertension, and Seizures is admitted for shortness of breath. On admission patient found to have elevated BUN creatinine nephrology is consulted Past Medical History liver cirrhosis, DM, hypertension, Seizures Allergies: Coded Allergies: NO KNOWN ALLERGIES (Unverified , 01/08/23) Home Meds Reported Medications Hydromorphone Hcl (Dilaudid) 8 Mg Tab, 4 MG PO TID for rheumatoid arthritis, TAB 07/12/24 Current Medications Current Medications Medications (Trade) Dose Ordered Sig/Jeri Route PRN Reason Start Time Stop Time Status Last Admin Nitroglycerin (Ntrostat Sublingual) 0.4 mg Q5MINP PRN SL FOR CHEST PAIN 07/11/24 22:45 Morphine Sulfate 2 mg Q30M PRN IV FOR CHEST PAIN 07/11/24 22:45 Lactulose 30 ml Q8HR PO 07/11/24 22:45 07/12/24 05:42 Ondansetron HCl (Zofran) 4 mg Q6HP PRN IV NAUSEA / VOMITING 07/11/24 22:45 Diagnostic Test (Pha) (Accu-Chek Comfort Curve T) 1 strip ACHS 07/12/24 07:00 07/12/24 06:52 Insulin Human Regular (InsuLIN R) ACHS SC 07/12/24 07:00 Dextrose 50 ml UD PRN IV Blood Sugar LESS THAN 60 07/11/24 22:45 Furosemide (Lasix Injection) 40 mg DAILY IV 07/12/24 10:00 Norepinephrine Bitartrate 250 ml @ 3.75 mls/hr Q24H PRN IV FOR MAP UNDER 65 07/12/24 02:15 07/12/24 07:04 Morphine Sulfate 2 mg Q6HPRN PRN IV MODERATE PAIN (4-6 PAIN SCALE) 07/12/24 05:30 Family History: Cancer of small intestine G8 MOTHER Diabetes mellitus G8 MOTHER FH: cirrhosis G8 FATHER Review of Systems All 12 item review of systems reviewed with the patient nonsignificant except what is mentioned in the history of present illness H&P Exam Vital Signs/I&O Vital Sign Date Time Temp Pulse Resp B/P (MAP) Pulse Ox O2 Delivery O2 Flow Rate FiO2 07/12/24 10:00 104/46 07/12/24 08:30 96 9 100 07/12/24 07:30 Nasal Cannula* 2 28 07/12/24 07:29 97.6 97.6 Intake and Output 07/11/24 07/12/24 19:00 07:00 Intake Total 440 ml Balance 440 ml Intake IV Total 440 ml Physical Exam Patient is awake non comfortably in bed Icteric sclera Lungs clear to auscultation bilaterally Cardiac exam regular rate and rhythm GI soft bowel sounds are present normal Extremities no clubbing cyanosis or edema Neuro nonfocal Labs/Diagnostic Data Labs/Diagnostic Data Laboratory Tests Test 07/12/24 06:51 07/12/24 06:00 07/12/24 03:19 07/11/24 22:27 Range/Units POC Glucose 117 H 70-106 mg/dl White Blood Count 4.0 #L 4.4-10.8 10^3/uL Red Blood Count 2.69 L 4.0-5.20 10^6/uL Hemoglobin 9.2 L 12.2-16.2 g/dL Hematocrit 26.0 #L 36.0-46.0 % Mean Corpuscular Volume 96.5 80.0-100.0 fL Mean Corpuscular Hemoglobin 34.2 H 28.0-32.0 pg Mean Corpuscular Hemoglobin Concent 35.4 32.0-36.0 g/dL Red Cell Distribution Width 16.7 H 11.8-14.3 % Platelet Count 51 L 140-450 10^3/uL Mean Platelet Volume 7.8 6.9-10.8 fL Neutrophils (%) (Auto) 59.3 37.0-80.0 % Lymphocytes (%) (Auto) 21.7 10.0-50.0 % Monocytes (%) (Auto) 10.6 0.0-12.0 % Eosinophils (%) (Auto) 7.6 H 0.0-7.0 % Basophils (%) (Auto) 0.8 0.0-2.0 % Neutrophils # (Auto) 2.4 1.6-8.6 10 ^3/uL Lymphocytes # (Auto) 0.9 0.4-5.4 10 ^3/uL Monocytes # (Auto) 0.4 0-1.3 10 ^3/uL Eosinophils # (Auto) 0.3 0-0.8 10 ^3/uL Basophils # (Auto) 0 0-0.2 10 ^3/uL Nucleated Red Blood Cells 0.1 % Sodium Level 134 L 136-145 mmol/L Potassium Level 3.1 L 3.5-5.1 mmol/L Chloride Level 100 98-107 mmol/L Carbon Dioxide Level 25 20-31 mmol/L Anion Gap 9 5-15 Blood Urea Nitrogen 15 9-23 mg/dL Creatinine 1.72 H 0.550-1.02 mg/dL Glomerular Filtration Rate Calc 34 >90 mL/min BUN/Creatinine Ratio 8.7 L 10.0-20.0 Serum Glucose 121 H 74-106 mg/dL Calcium Level 8.1 L 8.7-10.4 mg/dL Total Bilirubin 4.0 H 0.2-1.0 mg/dL Aspartate Amino Transferase (AST) 53 H 13-40 U/L Alanine Aminotransferase (ALT) 24 7-40 U/L Alkaline Phosphatase 109 46-116 U/L Ammonia 59 H 11-32 umol/L Troponin I High Sensitivity 12 25 </=34 ng/L Total Protein 6.7 5.7-8.2 g/dL Albumin 2.6 L 3.2-4.8 g/dL Urine Color Dark-yellow Yellow Urine Clarity Ex.turbid Clear Urine pH 5.5 5.0-9.0 Urine Specific [place] 1.022 1.001-1.035 Urine Protein 1+ H Negative Urine Ketones Trace Negative Urine Blood Trace H Negative /uL Urine Nitrite Negative Negative Urine Bilirubin 1+ H Negative Urine Urobilinogen 2 H Negative mg/dL Urine Leukocyte Esterase 2+ Negative /uL Urine RBC 3 0 - 4 /hpf Urine Microscopic WBC 13 H 0-5 /HPF Urine Squamous Epithelial Cells Many <5 /hpf Urine Bacteria Few H None Seen /hpf Urine Hyaline Casts Many 0 - 2 /lpf Urine Granular Casts Many 0 /lpf Urine Mucus Few None Seen Urine Yeast (Budding) Occasional None Seen /hpf Urine Glucose Normal Normal mg/dL Prothrombin Time 16.3 H 9.3-11.8 sec Prothrombin Time INR 1.61 H 0.9-1.15 Triglycerides Level 74 < 150 mg/dL Cholesterol Level 79 < 200 mg/dL LDL Cholesterol 24 < 100 mg/dL HDL Cholesterol 28 L 40-59 mg/dL Test 07/11/24 20:33 07/11/24 19:35 07/11/24 19:33 Range/Units Total Bilirubin 4.7 H 0.2-1.0 mg/dL Direct Bilirubin 1.3 H <0.3 mg/dL Aspartate Amino Transferase (AST) 65 H 13-40 U/L Alanine Aminotransferase (ALT) 30 7-40 U/L Alkaline Phosphatase 145 H 46-116 U/L Troponin I High Sensitivity 21 15 </=34 ng/L Total Protein 7.9 5.7-8.2 g/dL Albumin 2.9 L 3.2-4.8 g/dL Blood Gas Specimen Type Arterial Blood Gas Sample Site Left radial Blood Gas Patient Temperature 37.0 Arterial Blood Date Drawn [id number] Arterial Blood pH 7.344 L 7.350-7.450 Arterial Blood Partial Pressure CO2 41.9 32.0-45.0 mmHg Arterial Blood Partial Pressure O2 59.3 L 83.0-108.0 mmHg Arterial Blood HCO3 22.3 21.0-28.0 mmol/L Arterial Blood Oxygen Saturation 87.1 L 94.0-98.0 % Arterial Blood Base Excess -3.2 L -2.0-3.0 mmol/L Arterial Blood Oxyhemoglobin 85.7 L 94.0-98.0 % Arterial Blood Carboxyhemoglobin 1.1 0.5-1.5 % Arterial Blood Methemoglobin 0.5 0.0-1.5 % Martin Test Yes Blood Gas Total Hemoglobin 11.20 L 12.0-16.0 g/dL Blood Gas Modality Room air FiO2 % 21.0 White Blood Count 6.1 4.4-10.8 10^3/uL Red Blood Count 3.22 L 4.0-5.20 10^6/uL Hemoglobin 10.6 L 12.2-16.2 g/dL Hematocrit 31.2 L 36.0-46.0 % Mean Corpuscular Volume 97.0 80.0-100.0 fL Mean Corpuscular Hemoglobin 33.0 H 28.0-32.0 pg Mean Corpuscular Hemoglobin Concent 34.0 32.0-36.0 g/dL Red Cell Distribution Width 17.2 H 11.8-14.3 % Platelet Count 89 L 140-450 10^3/uL Mean Platelet Volume 7.8 6.9-10.8 fL Neutrophils (%) (Auto) 66.6 37.0-80.0 % Lymphocytes (%) (Auto) 15.8 10.0-50.0 % Monocytes (%) (Auto) 9.6 0.0-12.0 % Eosinophils (%) (Auto) 7.4 H 0.0-7.0 % Basophils (%) (Auto) 0.6 0.0-2.0 % Neutrophils # (Auto) 4.0 1.6-8.6 10 ^3/uL Lymphocytes # (Auto) 1.0 0.4-5.4 10 ^3/uL Monocytes # (Auto) 0.6 0-1.3 10 ^3/uL Eosinophils # (Auto) 0.5 0-0.8 10 ^3/uL Basophils # (Auto) 0 0-0.2 10 ^3/uL Nucleated Red Blood Cells 0.1 % Platelet Estimate Decreased Sodium Level 134 L 136-145 mmol/L Potassium Level 3.4 L 3.5-5.1 mmol/L Chloride Level 101 98-107 mmol/L Carbon Dioxide Level 23 20-31 mmol/L Anion Gap 10 5-15 Blood Urea Nitrogen 14 9-23 mg/dL Creatinine 1.68 H 0.550-1.02 mg/dL Glomerular Filtration Rate Calc 35 >90 mL/min BUN/Creatinine Ratio 8.3 L 10.0-20.0 Serum Glucose 154 H 74-106 mg/dL Calcium Level 8.7 8.7-10.4 mg/dL Ammonia 81 H 11-32 umol/L B-Type Natriuretic Peptide 71.31 0-100 pg/mL Plasma/Serum Blood Alcohol < 3.0 <10 mg/dL Assessment Acute kidney injury superimposed Chronic Kidney Disease secondary hemodynamic mediated Diabetes mellitus type 2 Liver cirrhosis Jaundice Hypokalemia Hypoalbuminemia Anemia of chronic kidney disease Recommendations Closely monitor fluid and electrolytes Avoid nephrotoxic medications Strict I&Os Check urine electrolytes and urine protein excretion Kidney ultrasound reported bilateral atrophic kidney no obstruction KCL replacement Midodrine Albumin 25% IV piggyback Insulin sliding scale We will continue to follow Patient seen and examined by myself in the ER. I discussed my plan of care with the patient and primary nurse at the bedside I would like to thank Arlin for the consult, will follow up Plan discussed with: Patient HORACE TREJO MD July 12, 2024 08:35
[2024-07-12] MEDS: FUROSEMIDE 40 MG/4 ML VIAL IV SCH (10:00)
--- NOTE | 2024-07-12 15:07 | DVHSR ---
APPROVED REPORT EXAM: LIMITED Two-dimensional and M-mode echocardiogram with Doppler and color Doppler. Blood Pressure: 108/53 mmHg INDICATION SOB Leg edema r/o CHF RISK FACTORS Obesity: Height: 5', Weight: 210 DIMENSIONS LVDd4.8 (3.8-5.7cm)LA (2D)3.8 (1.9-4.0cm)Aortic Root2.5 (2.0-3.7cm) LVDs3.5 (2.5-4.0cm)LA (MM) (1.9-4.0cm)Aortic Cusp Exc1.4 (1.5-2.0cm) EF (%) 55.0 (55-70%)Rt. Atrium3.5 (1.9-4.0cm)Asc. Aorta cm IVSd0.8 (0.7-1.1cm)RV (D) (1.8-2.4cm) PWd0.9 (0.7-1.1cm) Mitral Valve MitralMitral Stenosis E wave1.20m/sMV Mean GR.3mmHg A wave1.10m/sMV Peak GR.28mmHg E/A ratio1.12D MVAcm2 DECEL [id number] 1/2 Unin54im IVRTmsDop MVA2.42cm2 Aortic Valve Aortic ValveAortic Stenosis V11.10m/[place] Mean GR.9mmHg V22.00m/[place] Peak GR.16mmHg LVOT Diameter2.0 (1.8-2.4cm)Doppler AVA1.73cm2 Pulmonic Valve V20.90m/s Tricuspid Valve TR Velocity2.70m/s [id number] Other Information Quality : Technically LimitedRhythm : Technically limited study due to body habitus. Conclusion MILD LVH AND MILD LV DIASTOLIC DYSFUNCTION LV EF IS 65% AND IS NORMAL CALCIFIED AORTIC VALVE AORTIC SCLEROSIS BUT NO STENOSIS SLIGHTLY DILATED LA SLIGHTLY DILATED RV RVSP IS 40 MM OF HG AND IS ELEVATED MILD PULMONARY HYPERTENSION NO EFFUSION NORMAL MV,TV AND PV
[2024-07-12] MEDS: POTASSIUM CHL 20 Meq TABLET PO ONE (20:28)
[2024-07-12] MEDS: MORPHINE SULFATE INJ 2 MG/ml SYRG IV PRN (21:52)
[2024-07-12 23:54] LABS: Potassium 3.2 mmol/L (3.5-5.1)
[2024-07-12 23:59] LABS: Magnesium 1.6 mg/dL (1.6-2.6)
[2024-07-13] VITALS (80 sets, daily range): BP systolic 91–141; BP diastolic 32–68; PULSE 79–103; RESP 11–37; TEMP 98.1–98.9; O2SAT 92–100
[2024-07-13] MEDS: POTASSIUM CHL 20 Meq TABLET PO ONE (00:33)
[2024-07-13] MEDS: MAGNESIUM SULFATE 1GM/100ML 100 ML IV ONE (00:37)
[2024-07-13 03:23] LABS: Basophils # (auto) 0 10 ^3/uL (0-0.2); Lymphocytes # (auto) 0.5 10 ^3/uL (0.4-5.4); Lymphocytes % (auto) 14.5 % (10.0-50.0); Monocytes # (auto) 0.3 10 ^3/uL (0-1.3); Neutrophils # (auto) 2.3 10 ^3/uL (1.6-8.6); Nucleated Red Blood Cells % 0.1 %
[2024-07-13 03:25] LABS: Eosinophils # (auto) 0.3 10 ^3/uL (0-0.8); Eosinophils % (auto) 8.1 % (0.0-7.0); Hematocrit 26.9 % (36.0-46.0); Hemoglobin 9.3 g/dL (12.2-16.2); Mean Corpuscular Hgb Conc. 34.6 g/dL (32.0-36.0); Mean Corpuscular Volume 95.2 fL (80.0-100.0); Monocytes % (auto) 7.9 % (0.0-12.0); Neutrophils % (auto) 68.5 % (37.0-80.0); Platelet Count (auto) 50 10^3/uL (140-450); Red Blood Cells 2.82 10^6/uL (4.0-5.20); Red Cell Distribution Width 16.6 % (11.8-14.3); White Blood Cell 3.4 10^3/uL (4.4-10.8)
[2024-07-13 03:48] LABS: Alkaline Phosphatase 115 U/L (46-116)
[2024-07-13 03:49] LABS: Alanine Aminotransferase 25 U/L (7-40); Anion Gap 6 (5-15); Blood Urea Nitrogen 14 mg/dL (9-23); Carbon Dioxide 28 mmol/L (20-31); Chloride 103 mmol/L (98-107); Glucose 101 mg/dL (74-106); Potassium 3.5 mmol/L (3.5-5.1); Sodium 137 mmol/L (136-145); Total Protein 6.5 g/dL (5.7-8.2)
[2024-07-13 03:50] LABS: Albumin 2.5 g/dL (3.2-4.8); Aspartate Aminotransferase 57 U/L (13-40); Bilirubin, Total 3.1 mg/dL (0.2-1.0); Calcium 7.8 mg/dL (8.7-10.4)
[2024-07-13] MEDS: MORPHINE SULFATE INJ 2 MG/ml SYRG IV PRN (06:26)
[2024-07-13 12:23] LABS: Creatinine, Urine 37.73 mg/dL (30.0-125.0); Urine Protein/Creatinine Ratio 0.16
[2024-07-13 12:25] LABS: Protein, Urine < 6.0 mg/dL (1-14)
--- NOTE | 2024-07-13 13:34 | DVHPN2 ---
Progress Note Date Seen: July 13, 2024 Resident Creating Document: TWAN COYNE RESIDENT Has the PT tested + for MRSA If YES, has PT been informed?: No Medical Necessity Reason Pt with a Central, PICC or Fol: No Subjective Review of Systems Patient seen and examined at bedside. Patient is alert and oriented in person, place and time. Currently on room air saturating above 96%. The patient was on Levophed at 2 micrograms/minute. We will start the patient on midodrine 10 mg t.i.d. and we will titrate off Levophed as tolerated. We will also give albumin three doses IV. Patient had a good total urine output of 3.3 L in the last 24 hours. Upon my examination reveals decreased breath sounds new right lung reddy but left lung reddy is grossly clear. There are also bilateral lower extremity pedal edema 2+ that is worse on the right lower extremity compared to the left one. Today, creatinine improved from 1.72 all doing down to 1.08. We will sign off the case at this time. Patient may be downgraded to WANDA/TELE per hospitalist recommendations. ROS Constitutional: Denies weight loss, fever and chills. HEENT: Denies changes in vision and hearing. Respiratory: Denies shortness of breath and cough Cardiovascular: Denies chest discomfort or palpitations GI: Reports mild abdominal distention. Denies abdominal pain, nausea, vomiting and diarrhea. : Denies dysuria and urinary frequency. Musculoskeletal: Reports mild lower extremity swelling. Denies myalgias and joint pain Skin: Denies rash and pruritus. Neurological: Denies dizziness, headache, vision or hearing problems Objective vital signs Vital Sign Date Time Temp Pulse Resp B/P (MAP) Pulse Ox O2 Delivery O2 Flow Rate FiO2 07/13/24 12:00 116/59 07/13/24 10:53 91 18 93 07/13/24 10:00 Room Air* 0 21 07/13/24 08:08 98.5 98.5 Total Intake and Output 07/12/24 07/12/24 07/13/24 15:00 23:00 07:00 Intake Total 221.75 ml 573.75 ml Output Total 100 ml 2000 ml 1200 ml Balance -100 ml -1778.25 ml -626.25 ml medications Current Medications Medications Dose Ordered Sig/Jeri Route Start Time Stop Time Status Last Admin Dose Admin Nitroglycerin 0.4 mg Q5MINP PRN SL 07/11/24 22:45 Morphine Sulfate 2 mg Q30M PRN IV 07/11/24 22:45 Lactulose 30 ml Q8HR PO 07/11/24 22:45 07/13/24 06:19 30 ML Ondansetron HCl 4 mg Q6HP PRN IV 07/11/24 22:45 Diagnostic Test (Pha) 1 strip ACHS 07/12/24 07:00 07/13/24 11:36 1 STRIP Insulin Human Regular ACHS SC 07/12/24 07:00 07/13/24 11:38 2 UNITS Dextrose 50 ml UD PRN IV 07/11/24 22:45 Furosemide 40 mg DAILY IV 07/12/24 10:00 07/13/24 09:47 40 MG Norepinephrine Bitartrate 250 ml @ 3.75 mls/hr Q24H PRN IV 07/12/24 02:15 07/12/24 07:04 3.75 MLS/HR Morphine Sulfate 2 mg Q6HPRN PRN IV 07/12/24 05:30 07/13/24 06:30 2 MG Midodrine 10 mg TID@0600,1200,1800 PO 07/13/24 13:30 UNV Examination Physical Examination General: Patient alert and oriented in person, place and time. Patient following commands. HEENT: Normocephalic, atraumatic, moist mucous membranes Respiratory/pulmonary: There are decreased breath sounds on right lung reddy but left lung reddy sounds grossly clear. No wheezes at this time Cardiovascular: Normal heart sounds S1 and S2 with no associated murmurs Abdomen: Abdomen mildly distended, but there is no pain to palpation in any of the abdominal quadrants, no palpable masses. Extremities: There is bilateral lower extremity 2+ pitting edema that is worse in the right lower extremity compared to the left. Skin: No rashes or pruritus, there is no sacral edema present at this time. Neurological: Intact cranial nerves with no focal neurologic deficits laboratory and microbiology Laboratory Tests 07/13/24 03:01 Test 07/13/24 03:01 Range/Units Serum Glucose 101 74-106 mg/dL Microbiology Date/Time Source Procedure Growth Status 07/12/24 02:48 Nose MRSA Screen - Final Complete Problem List/Assessment/Plan Problem List/Assessment/Plan Assessment/plan Acute kidney injury superimposed on Chronic Kidney Disease likely hemodynamically mediated. (No Baseline Cr)available Acute decompensated liver cirrhosis, improving Diabetes mellitus type 2 Hypokalemia Hypoalbuminemia Anemia of chronic kidney disease Plan -monitor kidney function, creatinine improving today. -Closely monitor fluid and electrolytes, Potassium on normal range -Avoid nephrotoxic medications -Strict I&Os, total urine output of 3.3 L in the last 24 hours. -Start midodrine at 10mg TID -Start albumin 25% IV x3 doses -Kidney ultrasound reported bilateral atrophic kidney no obstruction -Check urine electrolytes and urine protein excretion -We will Sign OFF the case, since kidney function is back to baseline Goals of care discussed with the patient at bedside for >25min, FULL CODE Plan discussed with Dr. Pelaez Addendum Patient seen and examined, plan discussed with resident. Agree with above, we will sign off this case reconsult if needed Plan discussed with: Patient, Other My Orders My Orders Orders - TWAN COYNE Procedure Category Date Status Time Midodrine Tablet [facility] 07/13/24 Logged (Proamatine Tablet) 13:30 Albumin Ivpb [facility] 07/13/24 Transmitted 13:30 TWAN COYNE July 13, 2024 13:34 MEKA PELAEZ MD July 13, 2024 15:41
[2024-07-13] MEDS: MIDODRINE HCL 10 MG TAB PO SCH (13:52)
[2024-07-13] MEDS: ALBUMIN 25% 50 ML IV SCH (13:54)
--- NOTE | 2024-07-13 16:38 | DVHPN2 ---
Subjective Overnight events noted. Patient currently off the Levophed for last 4 hours. Changes from previous H/P or p: No Changes Objective Vitals Vital Signs Date Time Temp Pulse Resp B/P (MAP) Pulse Ox O2 Delivery O2 Flow Rate FiO2 07/13/24 16:00 17 97 Room Air* 0 21 07/13/24 16:00 91 07/13/24 15:52 106/49 07/13/24 12:08 98.9 98.9 Intake/Output Intake and Output 07/13/24 07:00 Intake Total 795.50 ml Output Total 3300 ml Balance -2504.50 ml Intake Oral 640 ml IV Total 155.50 ml Output Urine Total 3300 ml # Bowel Movements 2 Medications Current Medications Medications Dose Ordered Sig/Jeri Route Start Time Stop Time Status Last Admin Dose Admin Nitroglycerin 0.4 mg Q5MINP PRN SL 07/11/24 22:45 Morphine Sulfate 2 mg Q30M PRN IV 07/11/24 22:45 Lactulose 30 ml Q8HR PO 07/11/24 22:45 07/13/24 06:19 30 ML Ondansetron HCl 4 mg Q6HP PRN IV 07/11/24 22:45 Diagnostic Test (Pha) 1 strip ACHS 07/12/24 07:00 07/13/24 11:36 1 STRIP Insulin Human Regular ACHS SC 07/12/24 07:00 07/13/24 11:38 2 UNITS Dextrose 50 ml UD PRN IV 07/11/24 22:45 Furosemide 40 mg DAILY IV 07/12/24 10:00 07/13/24 09:47 40 MG Norepinephrine Bitartrate 250 ml @ 3.75 mls/hr Q24H PRN IV 07/12/24 02:15 07/12/24 07:04 3.75 MLS/HR Midodrine 10 mg TID@0600,1200,1800 PO 07/13/24 13:30 07/13/24 13:52 10 MG Albumin Human 50 ml @ 100 mls/hr Q8H IV 07/13/24 13:30 07/14/24 05:59 07/13/24 13:54 100 MLS/HR Hydromorphone HCl 2 mg Q6HP PRN PO 07/13/24 16:00 Laboratory Results Laboratory Tests 07/13/24 03:01 Chemistry Test 07/12/24 23:30 07/13/24 03:01 Magnesium Level 1.6 mg/dL (1.6-2.6) 1.8 mg/dL (1.6-2.6) Albumin 2.5 g/dL (3.2-4.8) L Calcium Level 7.8 mg/dL (8.7-10.4) L Total Protein 6.5 g/dL (5.7-8.2) LFT Test 07/13/24 03:01 Alanine Aminotransferase (ALT) 25 U/L (7-40) Alkaline Phosphatase 115 U/L (46-116) Aspartate Amino Transferase (AST) 57 U/L (13-40) H Total Bilirubin 3.1 mg/dL (0.2-1.0) H Urinalysis Test 07/12/24 03:19 07/13/24 11:40 Urine Color Dark-yellow (Yellow) Urine Clarity Ex.turbid (Clear) Urine pH 5.5 (5.0-9.0) Urine Specific [place] 1.022 (1.001-1.035) Urine Protein 1+ (Negative) H Urine Ketones Trace (Negative) Urine Blood Trace /uL (Negative) H Urine Nitrite Negative (Negative) Urine Bilirubin 1+ (Negative) H Urine Urobilinogen 2 mg/dL (Negative) H Urine Leukocyte Esterase 2+ /uL (Negative) Urine RBC 3 /hpf (0 - 4) Urine Microscopic WBC 13 /HPF (0-5) H Urine Squamous Epithelial Cells Many /hpf (<5) Urine Bacteria Few /hpf (None Seen) H Urine Hyaline Casts Many /lpf (0 - 2) Urine Granular Casts Many /lpf (0) Urine Mucus Few (None Seen) Urine Yeast (Budding) Occasional /hpf (None Urine Glucose Normal mg/dL (Normal) Urine Creatinine 37.73 mg/dL (30.0-125.0) Urine Protein/Creatinine Ratio 0.16 Urine Sodium 51 mmol/L (40-220) Urine Total Protein < 6.0 mg/dL (1-14) Microbiology Microbiology Date/Time Source Procedure Growth Status 07/12/24 02:48 Nose MRSA Screen - Final Complete Assessment/Plan Assessment/Plan 59 yo female with known history of liver cirrhosis, DM, hypertension, Seizures who presents with shortness of breath, chest pain, increased fatigue. Patient was found to have 1. Chest pain rule out [place] 2. Advanced liver cirrhosis with ascites 3. Hyperammonemia 4. Acute kidney injury suspected secondary to vasomotor nephropathy 5. Diabetes mellitus type 2 6. Hypotension, resolved currently off of Levophed -downgrade to telemetry, follow up repeat labs -discharge plan Plan discussed with: Patient My Orders Orders - ED ALBERTO MD Procedure Category Date Status Time Transfer Orders XFER 07/13/24 Transmitted 15:53 Hydromorphone Tablet PHA 07/13/24 In Process (Dilaudid Tablet) 16:00 Date of Service: July 13, 2024 Billing Provider: ED ALBERTO MD Common Visit Codes: NOT BILLABLE ED ALBERTO MD July 13, 2024 16:38
--- NOTE | 2024-07-13 17:57 | DVH ---
Ultrasound right lower extremity INDICATION: Swelling R>L TECHNIQUE: Duplex venous sonography was performed with real-time and flow sensitive images submitted for evaluation. FINDINGS: Normal phasic venous flow. Veins are fully compressible. No filling defects. IMPRESSION: 1. No evidence of deep vein thrombosis right lower extremity.
[2024-07-13] MEDS: HYDROmorphone HCL 2 MG TAB PO PRN (23:15)
[2024-07-14] VITALS (7 sets, daily range): BP systolic 97–122; BP diastolic 46–68; PULSE 68–85; RESP 16–18; TEMP 36.4; O2SAT 93–99
--- NOTE | 2024-07-14 00:45 | DVHINCON2 ---
DATE OF CONSULTATION: 07/13/2024 CARDIOLOGY CONSULTATION REFERRING PHYSICIAN: ____. CONSULTING PHYSICIAN: Joslyn Freeman MD INDICATION: Chest pain. HISTORY OF PRESENT ILLNESS: The patient is a 59-year-old female with a history of liver cirrhosis, hypertension, obesity, diabetes, seizure disorder, presented to the hospital with complaints of worsening shortness of breath and feeling tired. The patient stated that her blood pressure at home was low. The patient was noted to be hypotensive by presentation and started on Levophed and admitted to ICU. The patient was also complaining of left lower abdominal pain but denied any chest pain as such. The patient denies any prior history of heart disease known to her. PAST MEDICAL HISTORY: * Liver cirrhosis. * Hypertension. * Diabetes. MEDICATIONS: Per med rec. ALLERGIES: No known drug allergies. PHYSICAL EXAMINATION: GENERAL: Alert and awake in no form of cardiopulmonary distress. VITAL SIGNS: Blood pressure 150/51, pulse is 96 per minute, saturation 99%. HEENT: No carotid bruits. No jugular venous distention. CHEST: Bilateral air entry. CARDIOVASCULAR: Precordial and carotid pulses palpable. Normal S1, S2. Regular rate and rhythm. No appreciable gallop or rubs. ABDOMEN: Distended. EXTREMITIES: Bilateral edema. DIAGNOSTIC DATA: White count 3.4, hemoglobin 9.3, platelet count 50. Sodium 137, potassium 3.5, creatinine 1.08. At presentation, her creatinine was 1.68. Troponin negative x3. ASSESSMENT: * Left upper quadrant abdominal pain. The patient denies any chest pain. * Worsening shortness of breath in the setting of ascites and liver cirrhosis. * Liver cirrhosis. * Hypotension, currently improved. * History of diabetes. * History of hypertension. RECOMMENDATIONS: * Agree with diuresis. * Continue with Lasix. * We will review echo. * If the patient's blood pressure remains stable, may be downgraded to telemetry. * GI evaluation in progress. Thank you for allowing me to participate in the care of this patient. MD RICKY Barahona/MONI/ALAN/LUIS TID: [id number] RECEIPT: [id number]
[2024-07-14] MEDS: ONDANSETRON HCL 4 MG/2 ML VIAL IV PRN (02:47)
[2024-07-14 07:20] LABS: Basophils # (auto) 0 10 ^3/uL (0-0.2); Eosinophils # (auto) 0.1 10 ^3/uL (0-0.8); Lymphocytes # (auto) 0.5 10 ^3/uL (0.4-5.4); Monocytes # (auto) 0.2 10 ^3/uL (0-1.3); Neutrophils # (auto) 1.8 10 ^3/uL (1.6-8.6); Platelet Count (auto) 45 10^3/uL (140-450)
[2024-07-14 07:22] LABS: Basophils % (auto) 0.5 % (0.0-2.0); Eosinophils % (auto) 5.5 % (0.0-7.0); Hematocrit 25.9 % (36.0-46.0); Lymphocytes % (auto) 18.4 % (10.0-50.0); Mean Corpuscular Hemoglobin 33.7 pg (28.0-32.0); Mean Corpuscular Hgb Conc. 34.9 g/dL (32.0-36.0); Mean Corpuscular Volume 96.7 fL (80.0-100.0); Monocytes % (auto) 9.1 % (0.0-12.0); Neutrophils % (auto) 66.5 % (37.0-80.0); Nucleated Red Blood Cells % 0.2 %; Red Blood Cells 2.68 10^6/uL (4.0-5.20); Red Cell Distribution Width 16.8 % (11.8-14.3); White Blood Cell 2.6 10^3/uL (4.4-10.8)
[2024-07-14 07:23] LABS: Alanine Aminotransferase 26 U/L (7-40); Alkaline Phosphatase 95 U/L (46-116); Anion Gap 10 (5-15); BUN/Creatinine Ratio 12.4 (10.0-20.0); Blood Urea Nitrogen 12 mg/dL (9-23); Carbon Dioxide 27 mmol/L (20-31); Chloride 104 mmol/L (98-107); Glucose 98 mg/dL (74-106); Sodium 141 mmol/L (136-145); Total Protein 6.6 g/dL (5.7-8.2)
[2024-07-14 07:25] LABS: Albumin 2.8 g/dL (3.2-4.8); Aspartate Aminotransferase 52 U/L (13-40); Bilirubin, Total 3.5 mg/dL (0.2-1.0); Calcium 8.6 mg/dL (8.7-10.4); Potassium 3.1 mmol/L (3.5-5.1)
[2024-07-14 08:47] LABS: Large Platelets FEW; Platelet Estimate Decreased
[2024-07-14] MEDS ORDERED: MID10T PO (15:17)
--- NOTE | 2024-07-14 15:18 | DVHDS2 ---
Discharge Summary Date of Admission July 11, 2024 at 22:39 Date of Discharge: July 14, 2024 Labs/Diagnostic Data: Laboratory Results Test 07/14/24 10:56 07/14/24 05:49 07/13/24 11:40 07/13/24 03:01 POC Glucose 112 mg/dl (70-106) White Blood Count 2.6 10^3/uL (4.4-10.8) Red Blood Count 2.68 10^6/uL (4.0-5.20) Hemoglobin 9.0 g/dL (12.2-16.2) Hematocrit 25.9 % (36.0-46.0) Mean Corpuscular Volume 96.7 fL (80.0-100.0) Mean Corpuscular Hemoglobin 33.7 pg (28.0-32.0) Mean Corpuscular Hemoglobin Concent 34.9 g/dL (32.0-36.0) Red Cell Distribution Width 16.8 % (11.8-14.3) Platelet Count 45 10^3/uL (140-450) Mean Platelet Volume 7.7 fL (6.9-10.8) Neutrophils (%) (Auto) 66.5 % (37.0-80.0) Lymphocytes (%) (Auto) 18.4 % (10.0-50.0) Monocytes (%) (Auto) 9.1 % (0.0-12.0) Eosinophils (%) (Auto) 5.5 % (0.0-7.0) Basophils (%) (Auto) 0.5 % (0.0-2.0) Neutrophils # (Auto) 1.8 10 ^3/uL (1.6-8.6) Lymphocytes # (Auto) 0.5 10 ^3/uL (0.4-5.4) Monocytes # (Auto) 0.2 10 ^3/uL (0-1.3) Eosinophils # (Auto) 0.1 10 ^3/uL (0-0.8) Basophils # (Auto) 0 10 ^3/uL (0-0.2) Nucleated Red Blood Cells 0.2 % Platelet Estimate Decreased Large Platelets Few Sodium Level 141 mmol/L (136-145) Potassium Level 3.1 mmol/L (3.5-5.1) Chloride Level 104 mmol/L (98-107) Carbon Dioxide Level 27 mmol/L (20-31) Anion Gap 10 (5-15) Blood Urea Nitrogen 12 mg/dL (9-23) Creatinine 0.97 mg/dL (0.550-1.02) Glomerular Filtration Rate Calc 67 mL/min (>90) BUN/Creatinine Ratio 12.4 (10.0-20.0) Serum Glucose 98 mg/dL (74-106) Calcium Level 8.6 mg/dL (8.7-10.4) Total Bilirubin 3.5 mg/dL (0.2-1.0) Aspartate Amino Transferase (AST) 52 U/L (13-40) Alanine Aminotransferase (ALT) 26 U/L (7-40) Alkaline Phosphatase 95 U/L (46-116) Total Protein 6.6 g/dL (5.7-8.2) Albumin 2.8 g/dL (3.2-4.8) Urine Creatinine 37.73 mg/dL (30.0-125.0) Urine Protein/Creatinine Ratio 0.16 Urine Sodium 51 mmol/L (40-220) Urine Total Protein < 6.0 mg/dL (1-14) Magnesium Level 1.8 mg/dL (1.6-2.6) Ammonia 77 umol/L (11-32) Test 07/12/24 22:11 07/12/24 03:19 07/11/24 22:27 07/11/24 20:33 Troponin I High Sensitivity 4 ng/L (</=34) Urine Color Dark-yellow (Yellow) Urine Clarity Ex.turbid (Clear) Urine pH 5.5 (5.0-9.0) Urine Specific [place] 1.022 (1.001-1.035) Urine Protein 1+ (Negative) Urine Ketones Trace (Negative) Urine Blood Trace /uL (Negative) Urine Nitrite Negative (Negative) Urine Bilirubin 1+ (Negative) Urine Urobilinogen 2 mg/dL (Negative) Urine Leukocyte Esterase 2+ /uL (Negative) Urine RBC 3 /hpf (0 - 4) Urine Microscopic WBC 13 /HPF (0-5) Urine Squamous Epithelial Cells Many /hpf (<5) Urine Bacteria Few /hpf (None Seen) Urine Hyaline Casts Many /lpf (0 - 2) Urine Granular Casts Many /lpf (0) Urine Mucus Few (None Seen) Urine Yeast (Budding) Occasional /hpf (None Urine Glucose Normal mg/dL (Normal) Prothrombin Time 16.3 sec (9.3-11.8) Prothrombin Time INR 1.61 (0.9-1.15) Triglycerides Level 74 mg/dL (< 150) Cholesterol Level 79 mg/dL (< 200) LDL Cholesterol 24 mg/dL (< 100) HDL Cholesterol 28 mg/dL (40-59) Direct Bilirubin 1.3 mg/dL (<0.3) Test 07/11/24 19:35 07/11/24 19:33 Blood Gas Specimen Type Arterial Blood Gas Sample Site Left radial Blood Gas Patient Temperature 37.0 Arterial Blood Date Drawn [id number] Arterial Blood pH 7.344 (7.350-7.450) Arterial Blood Partial Pressure CO2 41.9 mmHg (32.0-45.0) Arterial Blood Partial Pressure O2 59.3 mmHg (83.0-108.0) Arterial Blood HCO3 22.3 mmol/L (21.0-28.0) Arterial Blood Oxygen Saturation 87.1 % (94.0-98.0) Arterial Blood Base Excess -3.2 mmol/L (-2.0-3.0) Arterial Blood Oxyhemoglobin 85.7 % (94.0-98.0) Arterial Blood Carboxyhemoglobin 1.1 % (0.5-1.5) Arterial Blood Methemoglobin 0.5 % (0.0-1.5) Martin Test Yes Blood Gas Total Hemoglobin 11.20 g/dL (12.0-16.0) Blood Gas Modality Room air FiO2 % 21.0 B-Type Natriuretic Peptide 71.31 pg/mL (0-100) Plasma/Serum Blood Alcohol < 3.0 mg/dL (<10) Other Laboratory Tests 07/14/24 05:49 Brief Hx & Hospital Course: 59 yo female with known history of liver cirrhosis, DM, hypertension, Seizures who presents with shortness of breath, chest pain, increased fatigue. Patient was found to have chest pain ID ruled out. Patient does have advanced liver cirrhosis with a ascites. Patient has a high ammonia level and altered mental status which improved with lactulose. Patient was kept in ICU initially as she was requiring Levophed for low blood pressure. Midodrine was started patient is currently stable to be discharged. Condition at Discharge: Stable Final Diagnosis/Problems List 59 yo female with known history of liver cirrhosis, DM, hypertension, Seizures who presents with shortness of breath, chest pain, increased fatigue. Patient was found to have 1. Chest pain rule out ID 2. Advanced liver cirrhosis with ascites 3. Hyperammonemia 4. Acute kidney injury suspected secondary to vasomotor nephropathy 5. Diabetes mellitus type 2 6. Hypotension, resolved currently off of Levophed Discharge Disposition: Home SNF Discharge Will this Physician continue t: No Discharge Instruct/Medications Diet: Cardiac 2g Na,low cholest Activity: See Comment Activity comment: No driving while on narcotics, no playing on heavy machinery, no signing legal documents. Follow Up/Referral: Follow up with the PCP in 1-2 weeks Medications: Resume home medications including Lasix Aldactone and lactulose Discharge Statement: "Patient was advised to return to the ER or call 911 if any headaches, dizziness, shortness of breath, chest pain, abdominal pain, bleeding, fevers, or worsening of medical condition. Patient was counseled about treatment plan, medications, possible side effects, patient�verbalized understanding. All questions were answered to the best of my ability. This discharge took greater then 30 minutes in planning, reviewing documentation, counseling the patient, and discussing with other team members." ASSESSMENT ASSESSMENT Assessment 59 yo female with known history of liver cirrhosis, DM, hypertension, Seizures who presents with shortness of breath, chest pain, increased fatigue. Patient was found to have 1. Chest pain rule out ID 2. Advanced liver cirrhosis with ascites 3. Hyperammonemia 4. Acute kidney injury suspected secondary to vasomotor nephropathy 5. Diabetes mellitus type 2 6. Hypotension, resolved currently off of Levophed Date of Service: July 14, 2024 Billing Provider: ED ALBERTO MD Common Visit Codes: NOT BILLABLE ED ALBERTO MD July 14, 2024 15:18
[2024-07-14] MEDS: POTASSIUM EFFERVESENT TAB 25 MEQ PO ONE (15:40)
== END 2024-07-14 17:40 | disposition home or self-care (01) | DRG 432 ==
LOC: ER 18:55 → OVERFLOW 22:39 → ICU WEST 07-12 17:54 → TELE-WESTW 07-13 21:48
PROVIDERS: ADMIT Nurse Practitioner Family; ATTEND Nurse Practitioner Family
DX: K74.60 Unspecified cirrhosis of liver (principal); N17.0 Acute kidney failure with tubular necrosis; E72.20 Disorder of urea cycle metabolism, unspecified; R18.8 Other ascites; E87.6 Hypokalemia; E11.65 Type 2 diabetes mellitus with hyperglycemia; E88.09 Other disorders of plasma-protein metabolism, not elsewhere classified; N18.9 Chronic kidney disease, unspecified; E11.22 Type 2 diabetes mellitus with diabetic chronic kidney disease; D69.6 Thrombocytopenia, unspecified; D63.1 Anemia in chronic kidney disease; G40.909 Epilepsy, unspecified, not intractable, without status epilepticus; I12.9 Hypertensive chronic kidney disease with stage 1 through stage 4 chronic kidney disease, or unspecified chronic kidney disease; Z79.84 Long term (current) use of oral hypoglycemic drugs; Z83.3 Family history of diabetes mellitus; Z79.899 Other long term (current) drug therapy; E86.0 Dehydration; I95.9 Hypotension, unspecified
CPT/HCPCS: 36415; 36600; 71045; 74176; 76775; 80048; 80053; 80061; 80076; 80320; 81001; 82140; 82570; 82805; 82962; 83735; 83880; 84132; 84156; 84300; 84484; 85025; 85610; 87081; 93005; 93306; 93971; 94640; 96361; 96374; G0378; J1885; J2405